=== PATIENT | female | born 1965 | race Caucasian/White ===

== ENCOUNTER 2022-11-22 23:21 | Inpatient (IN) | payer OTHER, SELFPAY ==
[2022-11-23 01:13] VITALS: BMI 32.6
[2022-11-23 01:22] VITALS: BP 124/67; PULSE 56; RESP 17; TEMP 36.6; O2SAT 96
[2022-11-23] MEDS: traZODone HCL 50 MG TABLET PO ×2 (01:29→21:47)
[2022-11-23] MEDS: hydrOXYzine HCL 25 MG TABLET PO (01:29)
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
[2022-11-23 06:00] VITALS: BP 121/83; PULSE 60; RESP 18; TEMP 36.5; O2SAT 97
[2022-11-23] MEDS: Thiamine HCL 100 MG TABLET PO (11:02)
[2022-11-23] MEDS: Sennosides 8.6 MG TABLET 17.2 MG PO (11:02)
[2022-11-23] MEDS: Folic Acid 1 MG TABLET PO (11:02)
[2022-11-23] MEDS: Multivitamin TABLET 1 TAB PO (11:02)
[2022-11-23] MEDS: FLUoxetine HCl 20 MG CAPSULE PO (11:02)
[2022-11-23] MEDS: Aspirin 81 MG TAB.CHEW PO (11:02)
[2022-11-23] MEDS: carvediloL 6.25 MG TABLET PO (11:55)
--- NOTE | 2022-11-23 16:11 | HO.PM.IMCN ---
History of Present Illness Data of Consult Service Date: 11/23/22 Primary Care Provider: Unknown Physician HPI Reason for consult: Admission H&P Pt is a 57-year-old female with a PMH significant for?CAD and MDD who is admitted to psychiatry unit for increasing depression with intentional overdose of 6 metformin pills and 6 atorvastatin. Patient has also been drinking heavily and using cocaine. Medical consult for admission H&P. ?Patient initially presented to [facility] on 11/16/2022 and while hospitalized had sudden onset of chest/throat burning. Patient admitted that she had had ongoing symptoms of exertional dyspnea and throat tightness after heavy meals. Was given an echocardiogram done that found low normal ejection fraction of 50-55% with hypokinesis of the basal to mid anterior lateral and basal to mid inferior lateral santiago. Serial troponins were negative. Patient's other workup showed that she likely had some degree of CAD and was started on a statin, aspirin, and metoprolol. Patient was also initially found to have a prolonged QT likely in the setting of intentional overdose. Currently patient has no acute medical complaints. Patient states she is feeling ?good?. Denies any continue will throat/chest burning or irritation. Denies chest pain/pressure, palpitations. Denies shortness of breath. No fever, chills, nausea, vomiting, diarrhea, abdominal pain. Review of Systems Review of Systems: She has no acute medical complaints at this time. [facility] Medical History PTSD (post-traumatic stress disorder) Cocaine use disorder, mild, abuse Alcohol use disorder, severe, dependence Recurrent major depression Social History Household Members: Spouse Housing: House Do you presently have visiting nurse or other home services: No Patient Tobacco Use Status: Current someday Tobacco user Tobacco use type: Cigarette e-Cigarette/Vaping Use: Never Used Patient Interested in Nicotine Replacement: No Patient Given Instructions on How to Stop Smoking: Yes Date Education Initiated: 11/23/22 Second Hand Smoke Exposure: No Use of substances other than those prescribed or required for medical reasons: Yes Substance Use Type: Crack/Cocaine Substance Use Frequency: Recent Binge Last Used Substance: Weeks (ago) Last Used Substance Other:: one week ago Currently Displaying Signs/Symptoms of Drug Intoxication Withdrawal: No Have you been hit, kicked, punched, or otherwise hurt by someone within the past year? If so, by whom?: No Do you feel safe in your current relationship?: Yes Is there a partner from a previous relationship who is making you feel unsafe now?: No Are you made to feel afraid or neglected: Yes Advance Directives: No Advance Directives Information Provided: Yes Do you have thoughts of harming others: None Do you have a plan to hurt others: No Plan Recently lost weight without trying: No Nutrition Risks: No Nutritional Risk Patient : No : No Poor oral hygiene: No Meds Allergies Allergy/AdvReac Type Severity Reaction Status Date / Time Penicillins Allergy Unknown Verified 11/23/22 00:24 Active Medications: Current Medications Acetaminophen (Acetaminophen 325 Mg Tablet) 650 mg PO Q6H PRN PRN Reason: Headache/Pain Mild Scale (1-3) Al Hydroxide/Mg Hydroxide (Magnesium Hydrox/Alum Hydrox 30 Ml Oral.Susp) 30 ml PO Q6H PRN PRN Reason: Heartburn/Nausea Aspirin (Aspirin 81 Mg Tab.Chew) 81 mg PO DAILY [facility] Last Admin: 11/23/22 11:02 Dose: 81 mg Carvedilol (Carvedilol 6.25 Mg Tablet) 6.25 mg PO BID [facility]; Protocol Last Admin: 11/23/22 11:55 Dose: 6.25 mg Fluoxetine HCl (Fluoxetine Hcl 20 Mg Capsule) 20 mg PO DAILY [facility] Last Admin: 11/23/22 11:02 Dose: 20 mg Folic Acid (Folic Acid 1 Mg Tablet) 1 mg PO DAILY [facility] Last Admin: 11/23/22 11:02 Dose: 1 mg Hydroxyzine HCl (Hydroxyzine Hcl 25 Mg Tablet) 25 mg PO Q6H PRN PRN Reason: Anxiety Last Admin: 11/23/22 01:29 Dose: 25 mg Magnesium Hydroxide (Milk Of Magnesia 30 Ml Oral.Susp) 30 ml PO DAILY PRN PRN Reason: Constipation Multivitamins/Vitamin C (Multivitamin Tablet) 1 tab PO DAILY [facility] Last Admin: 11/23/22 11:02 Dose: 1 tab Nicotine Polacrilex (Nicotine Polacrilex 2 Mg Gum) 2 mg BUCCAL Q2H PRN PRN Reason: Nicotine Cravings Nitroglycerin (Nitroglycerin 0.4 Mg Tab.Subl) 0.4 mg SUBLINGUAL Q5MX3 PRN PRN Reason: Chest Pain Polyethylene Glycol (Polyethylene Glycol 3350 17 Gm Powd.Pack) 17 gm PO DAILY PRN PRN Reason: constipation Senna (Sennosides 8.6 Mg Tablet) 17.2 mg PO DAILY [facility] Last Admin: 11/23/22 11:02 Dose: 17.2 mg Thiamine HCl (Thiamine Hcl 100 Mg Tablet) 100 mg PO DAILY [facility] Last Admin: 11/23/22 11:02 Dose: 100 mg Trazodone HCl (Trazodone Hcl 50 Mg Tablet) 50 mg PO BEDTIME MRX1 PRN PRN Reason: Insomnia Last Admin: 11/23/22 01:29 Dose: 50 mg Home Medications Medication Instructions Recorded Confirmed Last Taken Type aspirin 81 mg tablet,delayed 81 mg PO DAILY 11/23/22 11/23/22 Unknown History release carvedilol 6.25 mg tablet 6.25 mg PO BID 11/23/22 11/23/22 Unknown History Physical Exam Vital Signs and Narrative: Vital Signs: Last Vital Signs Temp 97.7 F 11/23/22 06:00 Pulse 60 11/23/22 06:00 Resp 18 11/23/22 06:00 BP 121/83 11/23/22 06:00 Pulse Ox 97 11/23/22 06:00 O2 Del Method Room Air 11/23/22 06:00 BMI result Body Mass Index 32.6 General: AOx3, no acute distress Resp: CTA bilaterally CVS: S1, S2, RRR GI: +BS, NT, no distention Skin: No rash Neuro: Cranial nerves II-XII grossly intact bilaterally. Motor grossly intact bilaterally Extremities: No edema Psych: Appropriate affect Assessment and Plan (1) Medical clearance for psychiatric admission: Status: Acute Plan Pt is a 57-year-old female with a PMH significant for?CAD and MDD who is admitted to [facility] psychiatry unit for increasing depression with intentional overdose of 6 metformin pills and 6 atorvastatin. Patient has also been drinking heavily and using cocaine. Medical consult for admission H&P Mood disorder Plan as per Psychiatry CAD Patient recently diagnosed with CAD after echocardiogram found inferolateral and anterior lateral wall motion abnormalities Continue aspirin, carvedilol Thank you for allowing us to participate in the care of this patient. Signing off at this time. Please let us know if there are any acute complaints or questions. Time Spent With Patient Time: Total time managing care of this patient today ____ minutes.
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
[2022-11-23 20:16] VITALS: BP 112/73; PULSE 60; TEMP 35.8
[2022-11-23 21:40] VITALS: BP 119/69; PULSE 54
[2022-11-23] MEDS: Atorvastatin Calcium 80 MG TABLET PO (21:47)
[2022-11-24 08:00] VITALS: BP 134/95; PULSE 76; RESP 20; TEMP 36.3; O2SAT 97
[2022-11-24] MEDS: FLUoxetine HCl 20 MG CAPSULE PO (09:08)
[2022-11-24] MEDS: Thiamine HCL 100 MG TABLET PO (09:08)
[2022-11-24] MEDS: Sennosides 8.6 MG TABLET 17.2 MG PO (09:08)
[2022-11-24] MEDS: Multivitamin TABLET 1 TAB PO (09:08)
[2022-11-24] MEDS: Aspirin 81 MG TAB.CHEW PO (09:08)
[2022-11-24] MEDS: carvediloL 6.25 MG TABLET PO (09:09)
[2022-11-24] MEDS: Folic Acid 1 MG TABLET PO (09:09)
[2022-11-24 09:14] LABS: Estimated Average Glucose 105 mg/dL; Hemoglobin A1c % 5.3 % (<6.0)
[2022-11-24 09:30] LABS: Alanine Aminotransferase 239 U/L (0-31); Albumin Level 3.6 g/dL (3.5-5.0); Alkaline Phosphatase 101 U/L (39-117); Anion Gap 13 (12-20); Aspartate Amino Transferase 202 U/L (5-31); Bilirubin Total 0.6 mg/dL (0.0-1.0); Blood Urea Nitrogen 16 mg/dL (9-16); Calcium 9.5 mg/dL (8.4-10.2); Carbon Dioxide 20 mmol/L (22-29); Chloride 111 mmol/L (96-108); Cholesterol 190 mg/dL (<200); Creatinine Clr Calc Pharmacy 91.1; Estimated Glomerular Filt Rate > 60; Glucose Fasting 100 mg/dL (60-99); HDL Cholesterol 31 mg/dL (>40); LDL Cholesterol Calculated 129 mg/dL (<100); Potassium 4.1 mmol/L (3.3-5.1); Sodium 140 mmol/L (135-145); Total Protein 7.9 g/dL (6.5-8.0); Triglycerides 152 mg/dL (<150)
[2022-11-24 09:45] LABS: Free T4 (Free Thyroxine) 0.99 ng/dL (0.71-1.85); Thyroid Stimulating Hormone 1.44 uIU/mL (0.32-4.0)
[2022-11-24 10:05] LABS: Folate 13.2 ng/mL (> or = 4.0); Vitamin B12 980 pg/mL (200-900)
[2022-11-24 10:56] LABS: Glucose, Whole Blood 109 mg/dL (60-115)
--- NOTE | 2022-11-24 12:55 | P.PNPSI_ITS ---
Subjective Subjective Date of Service: 11/24/22 Reason For Visit: F33.2 F10.20 Subjective Notes: Conditional Voluntary Healthcare Proxy: No Guardianship: No Medical Problems Affecting Mental Status: No Interim History: Review of QT prolongation with Ana today. Given marielena she can place on her phone to check medications for QT issues, Credible Meds. Pt is utilizing [employer]. and mother visited. s/w this leader writer this evening. I love her very much, the drinking is a serious problem. Any help I can offer her, I will. I will drive her to any program you tell me to . I fear I will lose her if she continues to drink . Medication Compliance: Yes Side effects from medications: No Attending Groups: Yes Review of Systems Acute medical concerns: No Mental Status Exam Mental Status Exam Patient Appearance: Appropriate Patient Orientation: Person, Place, Time and Situation Level of Consciousness: Alert Patient Behavior: Appropriate, Talkative, Cooperative and Good Eye Contact Mood Description: Depressed and Anxious Affect Description: Flat Patient Cognition Impaired: No Ability to Follow Directions: Good Speech Pattern: Spontaneous Speech Memory Description: Intact Hallucinations: None Delusions: Not Present Perceptual Disturbances: Depersonalization and Derealization Thought Process: Rumination Thought Content: positive for Perseveration Depressive Symptoms: Increased Anxiety, Difficulty Sleeping, Feelings of Worthlessness, Unhappiness and Low Self Esteem Judgement: Good Diagnostics Vital Signs (24Hr): Vital Signs - 24 hr 11/23/22 20:16 11/23/22 21:40 11/24/22 08:00 Temperature 96.4 F L 97.3 F Pulse Rate 60 54 76 Respiratory Rate 20 Blood Pressure 112/73 119/69 134/95 H Pulse Oximetry 97 Oxygen Delivery Method Room Air BMI result Body Mass Index 32.6 Labs 11/24/22 08:20 Labs: Laboratory Results - last 48 hr 11/24/22 11/24/22 08:20 10:53 Sodium 140 Potassium 4.1 Chloride 111 H Carbon Dioxide 20 L Anion Gap 13 BUN 16 Creatinine 0.75 Estim Creat Clear Calc 91.1 Estimated GFR > 60 POC Glucose 109 Fasting Glucose 100 H Estimat Average Glucose 105 Hemoglobin A1c % 5.3 Calcium 9.5 Total Bilirubin 0.6 AST 202 H ALT 239 H Alkaline Phosphatase 101 Total Protein 7.9 Albumin 3.6 Triglycerides 152 H Cholesterol 190 LDL Cholesterol, Calc 129 H HDL Cholesterol 31 L Vitamin B12 980 H Folate 13.2 TSH 1.44 Free T4 0.99 Medications Medications Current Medications Acetaminophen (Acetaminophen 325 Mg Tablet) 650 mg PO Q6H PRN PRN Reason: Headache/Pain Mild Scale (1-3) Al Hydroxide/Mg Hydroxide (Magnesium Hydrox/Alum Hydrox 30 Ml Oral.Susp) 30 ml PO Q6H PRN PRN Reason: Heartburn/Nausea Aspirin (Aspirin 81 Mg Tab.Chew) 81 mg PO DAILY [facility] Last Admin: 11/24/22 09:08 Dose: 81 mg Atorvastatin Calcium (Atorvastatin Calcium 80 Mg Tablet) 80 mg PO BEDTIME [facility] Last Admin: 11/23/22 21:47 Dose: 80 mg Carvedilol (Carvedilol 6.25 Mg Tablet) 6.25 mg PO BID [facility]; Protocol Last Admin: 11/24/22 09:09 Dose: 6.25 mg Fluoxetine HCl (Fluoxetine Hcl 20 Mg Capsule) 20 mg PO DAILY [facility] Last Admin: 11/24/22 09:08 Dose: 20 mg Folic Acid (Folic Acid 1 Mg Tablet) 1 mg PO DAILY [facility] Last Admin: 11/24/22 09:09 Dose: 1 mg Hydroxyzine HCl (Hydroxyzine Hcl 25 Mg Tablet) 25 mg PO Q6H PRN PRN Reason: Anxiety Last Admin: 11/23/22 01:29 Dose: 25 mg Magnesium Hydroxide (Milk Of Magnesia 30 Ml Oral.Susp) 30 ml PO DAILY PRN PRN Reason: Constipation Multivitamins/Vitamin C (Multivitamin Tablet) 1 tab PO DAILY [facility] Last Admin: 11/24/22 09:08 Dose: 1 tab Nicotine Polacrilex (Nicotine Polacrilex 2 Mg Gum) 2 mg BUCCAL Q2H PRN PRN Reason: Nicotine Cravings Nitroglycerin (Nitroglycerin 0.4 Mg Tab.Subl) 0.4 mg SUBLINGUAL Q5MX3 PRN PRN Reason: Chest Pain Polyethylene Glycol (Polyethylene Glycol 3350 17 Gm Powd.Pack) 17 gm PO DAILY PRN PRN Reason: constipation Senna (Sennosides 8.6 Mg Tablet) 17.2 mg PO DAILY [facility] Last Admin: 11/24/22 09:08 Dose: 17.2 mg Thiamine HCl (Thiamine Hcl 100 Mg Tablet) 100 mg PO DAILY [facility] Last Admin: 11/24/22 09:08 Dose: 100 mg Trazodone HCl (Trazodone Hcl 50 Mg Tablet) 50 mg PO BEDTIME MRX1 PRN PRN Reason: Insomnia Last Admin: 11/23/22 21:47 Dose: 50 mg Allergies Allergies Allergy/AdvReac Type Severity Reaction Status Date / Time Penicillins Allergy Unknown Verified 11/23/22 00:24 Assessment & Plan Assessment & Plan (1) Medical clearance for psychiatric admission: Status: Acute Code(s): Z00.8 - Encounter for other general examination (2) Recurrent major depression: Status: Acute Code(s): F33.9 - Major depressive disorder, recurrent, unspecified (3) Alcohol use disorder, severe, dependence: Status: Acute Code(s): F10.20 - Alcohol dependence, uncomplicated Assessment and Plan: 11/24/22: Continue current regime and plan of care (4) Cocaine use disorder, mild, abuse: Status: Acute Code(s): F14.10 - Cocaine abuse, uncomplicated (5) PTSD (post-traumatic stress disorder): Status: Acute Code(s): F43.10 - Post-traumatic stress disorder, unspecified Plan Pt is a 57-year-old female with a PMH significant for?CAD and MDD who is admitted to [facility] psychiatry unit for increasing depression with intentional overdose of 6 metformin pills and 6 atorvastatin. Patient has also been drinking heavily and using cocaine. Medical consult for admission H&P Mood disorder Plan as per Psychiatry CAD Patient recently diagnosed with CAD after echocardiogram found inferolateral and anterior lateral wall motion abnormalities Continue aspirin, carvedilol Thank you for allowing us to participate in the care of this patient. Signing off at this time. Please let us know if there are any acute complaints or questions. Reason for continued inpatient stay Substantial Risk for: harm to self, rapid decompensation and med/psych decompensation Time Spent With Patient Time: Total time managing care of this patient today ____ minutes.
[2022-11-24] MEDS: Acetaminophen 325 MG TABLET 650 MG PO (14:48)
[2022-11-24 18:00] VITALS: BP 134/75; PULSE 56; TEMP 36.4; O2SAT 97
[2022-11-24] MEDS: Atorvastatin Calcium 80 MG TABLET PO (21:28)
[2022-11-24] MEDS: traZODone HCL 50 MG TABLET PO (21:32)
[2022-11-25 08:31] VITALS: BP 129/83; PULSE 64; RESP 18; TEMP 36.3; O2SAT 97
[2022-11-25 08:40] LABS: Glucose, Whole Blood 94 mg/dL (60-115)
[2022-11-25] MEDS: FLUoxetine HCl 20 MG CAPSULE PO (08:41)
[2022-11-25] MEDS: Multivitamin TABLET 1 TAB PO (08:41)
[2022-11-25] MEDS: Folic Acid 1 MG TABLET PO (08:41)
[2022-11-25] MEDS: carvediloL 6.25 MG TABLET PO (08:41)
[2022-11-25] MEDS: Aspirin 81 MG TAB.CHEW PO (08:41)
[2022-11-25] MEDS: Thiamine HCL 100 MG TABLET PO (08:41)
--- NOTE | 2022-11-25 12:26 | HO.PSYCHPN ---
Subjective Subjective Date of Service: 11/25/22 Reason For Visit: F33.2 F10.20 Subjective Notes: Conditional Voluntary Medical Problems Affecting Mental Status: No (not diabetic just took who is meds in overdose ) Interim History: 57 yo MHF who was drinking prior to admission and maritn on various handfuls of medication- has been getting poc due to one of them being metformin but is not diabetic herself- feeling much better off alcohol and with fluoxetine- more hopeful and future oriented Medication Compliance: Yes Side effects from medications: No Attending Groups: Yes Review of Systems Acute medical concerns: No Medical Review of Systems: unchanged Mental Status Exam Mental Status Exam Narrative: casually groomed, Patient Appearance: Appropriate Patient Orientation: Person, Place, Time and Situation Level of Consciousness: Awake and Appropriate Patient Behavior: Appropriate Mood Description: Calm Affect Description: Appropriate Patient Cognition Impaired: No Ability to Follow Directions: Good Speech Pattern: Clear Hallucinations: None Thought Process: Intact and Goal Oriented Judgement: Good Diagnostics Vital Signs (24Hr): Vital Signs - 24 hr 11/24/22 18:00 11/25/22 08:31 Temperature 97.5 F 97.4 F Pulse Rate 56 64 Respiratory Rate 18 Blood Pressure 134/75 129/83 Pulse Oximetry 97 97 Oxygen Delivery Method Room Air BMI result Body Mass Index 32.6 Labs 11/24/22 08:20 Labs: Laboratory Results - last 48 hr 11/24/22 11/24/22 11/25/22 08:20 10:53 08:36 Sodium 140 Potassium 4.1 Chloride 111 H Carbon Dioxide 20 L Anion Gap 13 BUN 16 Creatinine 0.75 Estim Creat Clear Calc 91.1 Estimated GFR > 60 POC Glucose 109 94 Fasting Glucose 100 H Estimat Average Glucose 105 Hemoglobin A1c % 5.3 Calcium 9.5 Total Bilirubin 0.6 AST 202 H ALT 239 H Alkaline Phosphatase 101 Total Protein 7.9 Albumin 3.6 Triglycerides 152 H Cholesterol 190 LDL Cholesterol, Calc 129 H HDL Cholesterol 31 L Vitamin B12 980 H Folate 13.2 TSH 1.44 Free T4 0.99 Medications Medications Current Medications Acetaminophen (Acetaminophen 325 Mg Tablet) 650 mg PO Q6H PRN PRN Reason: Headache/Pain Mild Scale (1-3) Last Admin: 11/24/22 14:48 Dose: 650 mg Al Hydroxide/Mg Hydroxide (Magnesium Hydrox/Alum Hydrox 30 Ml Oral.Susp) 30 ml PO Q6H PRN PRN Reason: Heartburn/Nausea Aspirin (Aspirin 81 Mg Tab.Chew) 81 mg PO DAILY [facility] Last Admin: 11/25/22 08:41 Dose: 81 mg Atorvastatin Calcium (Atorvastatin Calcium 80 Mg Tablet) 80 mg PO BEDTIME [facility] Last Admin: 11/24/22 21:28 Dose: 80 mg Carvedilol (Carvedilol 6.25 Mg Tablet) 6.25 mg PO BID [facility]; Protocol Last Admin: 11/25/22 08:41 Dose: 6.25 mg Fluoxetine HCl (Fluoxetine Hcl 20 Mg Capsule) 20 mg PO DAILY [facility] Last Admin: 11/25/22 08:41 Dose: 20 mg Folic Acid (Folic Acid 1 Mg Tablet) 1 mg PO DAILY [facility] Last Admin: 11/25/22 08:41 Dose: 1 mg Hydroxyzine HCl (Hydroxyzine Hcl 25 Mg Tablet) 25 mg PO Q6H PRN PRN Reason: Anxiety Last Admin: 11/23/22 01:29 Dose: 25 mg Magnesium Hydroxide (Milk Of Magnesia 30 Ml Oral.Susp) 30 ml PO DAILY PRN PRN Reason: Constipation Multivitamins/Vitamin C (Multivitamin Tablet) 1 tab PO DAILY [facility] Last Admin: 11/25/22 08:41 Dose: 1 tab Nicotine Polacrilex (Nicotine Polacrilex 2 Mg Gum) 2 mg BUCCAL Q2H PRN PRN Reason: Nicotine Cravings Nitroglycerin (Nitroglycerin 0.4 Mg Tab.Subl) 0.4 mg SUBLINGUAL Q5MX3 PRN PRN Reason: Chest Pain Polyethylene Glycol (Polyethylene Glycol 3350 17 Gm Powd.Pack) 17 gm PO DAILY PRN PRN Reason: constipation Senna (Sennosides 8.6 Mg Tablet) 17.2 mg PO DAILY [facility] Last Admin: 11/25/22 08:42 Dose: Not Given Thiamine HCl (Thiamine Hcl 100 Mg Tablet) 100 mg PO DAILY [facility] Last Admin: 11/25/22 08:41 Dose: 100 mg Trazodone HCl (Trazodone Hcl 50 Mg Tablet) 50 mg PO BEDTIME MRX1 PRN PRN Reason: Insomnia Last Admin: 11/24/22 21:32 Dose: 50 mg Allergies Allergies Allergy/AdvReac Type Severity Reaction Status Date / Time Penicillins Allergy Unknown Verified 11/23/22 00:24 Assessment & Plan Assessment & Plan (1) Medical clearance for psychiatric admission: Status: Acute Code(s): Z00.8 - Encounter for other general examination (2) Recurrent major depression: Status: Acute Code(s): F33.9 - Major depressive disorder, recurrent, unspecified Assessment and Plan: doing well on fluoxetine (3) Alcohol use disorder, severe, dependence: Status: Acute Code(s): F10.20 - Alcohol dependence, uncomplicated Assessment and Plan: 11/24/22: Continue current regime and plan of care (4) Cocaine use disorder, mild, abuse: Status: Acute Code(s): F14.10 - Cocaine abuse, uncomplicated (5) PTSD (post-traumatic stress disorder): Status: Acute Code(s): F43.10 - Post-traumatic stress disorder, unspecified Plan Pt is a 57-year-old female with a PMH significant for?CAD and MDD who is admitted to [facility] unit for increasing depression with intentional overdose of 6 metformin pills and 6 atorvastatin. Patient has also been drinking heavily and using cocaine. Medical consult for admission H&P Mood disorder Plan as per Psychiatry CAD Patient recently diagnosed with CAD after echocardiogram found inferolateral and anterior lateral wall motion abnormalities Continue aspirin, carvedilol Thank you for allowing us to participate in the care of this patient. Signing off at this time. Please let us know if there are any acute complaints or questions. Patient educated on: medication risk/benefits and therapeutic strategies Informed Consent: understands Reason for continued inpatient stay Substantial Risk for: rapid decompensation Time Spent With Patient Time: Total time managing care of this patient today ____ minutes.
[2022-11-25 20:40] VITALS: BP 133/90; PULSE 55; TEMP 36.1
[2022-11-25] MEDS: Atorvastatin Calcium 80 MG TABLET PO (20:46)
[2022-11-25] MEDS: traZODone HCL 50 MG TABLET PO (20:47)
[2022-11-26] MEDS: hydrOXYzine HCL 25 MG TABLET PO (06:48)
[2022-11-26 08:15] VITALS: BP 121/91; PULSE 64; RESP 16; TEMP 36.4; O2SAT 98
[2022-11-26] MEDS: Multivitamin TABLET 1 TAB PO (08:30)
[2022-11-26] MEDS: Aspirin 81 MG TAB.CHEW PO (08:30)
[2022-11-26] MEDS: FLUoxetine HCl 20 MG CAPSULE PO (08:30)
[2022-11-26] MEDS: carvediloL 6.25 MG TABLET PO (08:30)
[2022-11-26] MEDS: Folic Acid 1 MG TABLET PO (08:30)
[2022-11-26] MEDS: Thiamine HCL 100 MG TABLET PO (08:30)
--- NOTE | 2022-11-26 11:33 | HO.PSYCHPN ---
Subjective Subjective Date of Service: 11/26/22 Reason For Visit: F33.2 F10.20 Subjective Notes: Conditional Voluntary Interim History: 57 yo with rash on her face- thinks it is due to laundry detergent - or soaphere0= on unit- asked pt to have bring own soap and to take benadryl 25mg q 4 today- otherwise she is quite content with antidepressant will have to dc it if rash continues- Medication Compliance: Yes Side effects from medications: Yes (? rash due to fluoxetine started on admission vs laundry soap) Attending Groups: Yes Review of Systems Acute medical concerns: Yes facial rash no mucus membrane swelling- no hives no sob Mental Status Exam Mental Status Exam Narrative: patient with redness over most of face- better a bit since taking benadryl pt reports Patient Appearance: Appropriate Patient Orientation: Person, Place, Time and Situation Level of Consciousness: Awake and Alert Patient Behavior: Appropriate and Cooperative Mood Description: Calm Affect Description: Calm Patient Cognition Impaired: No Ability to Follow Directions: Good Speech Pattern: Clear Hallucinations: None Delusions: Not Present Thought Process: Intact Thought Content: positive for Goal Oriented Judgement: Good Diagnostics Vital Signs (24Hr): Vital Signs - 24 hr 11/25/22 20:40 11/26/22 08:15 Temperature 96.9 F 97.5 F Pulse Rate 55 64 Respiratory Rate 16 Blood Pressure 133/90 H 121/91 H Pulse Oximetry 98 Oxygen Delivery Method Room Air BMI result Body Mass Index 32.6 Labs 11/24/22 08:20 Labs: Laboratory Results - last 48 hr 11/25/22 08:36 POC Glucose 94 Medications Medications Current Medications Acetaminophen (Acetaminophen 325 Mg Tablet) 650 mg PO Q6H PRN PRN Reason: Headache/Pain Mild Scale (1-3) Last Admin: 11/24/22 14:48 Dose: 650 mg Al Hydroxide/Mg Hydroxide (Magnesium Hydrox/Alum Hydrox 30 Ml Oral.Susp) 30 ml PO Q6H PRN PRN Reason: Heartburn/Nausea Aspirin (Aspirin 81 Mg Tab.Chew) 81 mg PO DAILY [facility] Last Admin: 11/26/22 08:30 Dose: 81 mg Atorvastatin Calcium (Atorvastatin Calcium 80 Mg Tablet) 80 mg PO BEDTIME [facility] Last Admin: 11/25/22 20:46 Dose: 80 mg Carvedilol (Carvedilol 6.25 Mg Tablet) 6.25 mg PO BID [facility]; Protocol Last Admin: 11/26/22 08:30 Dose: 6.25 mg Fluoxetine HCl (Fluoxetine Hcl 20 Mg Capsule) 20 mg PO DAILY [facility] Last Admin: 11/26/22 08:30 Dose: 20 mg Folic Acid (Folic Acid 1 Mg Tablet) 1 mg PO DAILY [facility] Last Admin: 11/26/22 08:30 Dose: 1 mg Hydroxyzine HCl (Hydroxyzine Hcl 25 Mg Tablet) 25 mg PO Q6H PRN PRN Reason: Anxiety Last Admin: 11/26/22 06:48 Dose: 25 mg Magnesium Hydroxide (Milk Of Magnesia 30 Ml Oral.Susp) 30 ml PO DAILY PRN PRN Reason: Constipation Multivitamins/Vitamin C (Multivitamin Tablet) 1 tab PO DAILY [facility] Last Admin: 11/26/22 08:30 Dose: 1 tab Nicotine Polacrilex (Nicotine Polacrilex 2 Mg Gum) 2 mg BUCCAL Q2H PRN PRN Reason: Nicotine Cravings Nitroglycerin (Nitroglycerin 0.4 Mg Tab.Subl) 0.4 mg SUBLINGUAL Q5MX3 PRN PRN Reason: Chest Pain Polyethylene Glycol (Polyethylene Glycol 3350 17 Gm Powd.Pack) 17 gm PO DAILY PRN PRN Reason: constipation Senna (Sennosides 8.6 Mg Tablet) 17.2 mg PO DAILY [facility] Last Admin: 11/26/22 08:30 Dose: Not Given Thiamine HCl (Thiamine Hcl 100 Mg Tablet) 100 mg PO DAILY [facility] Last Admin: 11/26/22 08:30 Dose: 100 mg Trazodone HCl (Trazodone Hcl 50 Mg Tablet) 50 mg PO BEDTIME MRX1 PRN PRN Reason: Insomnia Last Admin: 11/25/22 20:47 Dose: 50 mg Allergies Allergies Allergy/AdvReac Type Severity Reaction Status Date / Time Penicillins Allergy Unknown Verified 11/23/22 00:24 Assessment & Plan Assessment & Plan (1) Medical clearance for psychiatric admission: Status: Acute Code(s): Z00.8 - Encounter for other general examination (2) Recurrent major depression: Status: Acute Code(s): F33.9 - Major depressive disorder, recurrent, unspecified Assessment and Plan: doing well on fluoxetine (3) Alcohol use disorder, severe, dependence: Status: Acute Code(s): F10.20 - Alcohol dependence, uncomplicated Assessment and Plan: 11/24/22: Continue current regime and plan of care (4) Cocaine use disorder, mild, abuse: Status: Acute Code(s): F14.10 - Cocaine abuse, uncomplicated (5) PTSD (post-traumatic stress disorder): Status: Acute Code(s): F43.10 - Post-traumatic stress disorder, unspecified (6) Facial rash: Status: Acute Code(s): R21 - Rash and other nonspecific skin eruption Assessment and Plan: on benadryl 25mg q 4 Plan Pt is a 57-year-old female with a PMH significant for?CAD and MDD who is admitted to [facility] unit for increasing depression with intentional overdose of 6 metformin pills and 6 atorvastatin. Patient has also been drinking heavily and using cocaine. Medical consult for admission H&P Mood disorder Plan as per Psychiatry CAD Patient recently diagnosed with CAD after echocardiogram found inferolateral and anterior lateral wall motion abnormalities Continue aspirin, carvedilol Thank you for allowing us to participate in the care of this patient. Signing off at this time. Please let us know if there are any acute complaints or questions. Patient educated on: medication risk/benefits and substance abuse Informed Consent: understands Reason for continued inpatient stay Substantial Risk for: rapid decompensation Time Spent With Patient Time: Total time managing care of this patient today ____ minutes.
[2022-11-26] MEDS: Acetaminophen 325 MG TABLET 650 MG PO (19:23)
[2022-11-26 19:48] VITALS: BP 127/61; PULSE 60; RESP 18; TEMP 36.2; O2SAT 95
[2022-11-26] MEDS: diphenhydrAMINE HCL 25 MG CAPSULE PO (21:18)
[2022-11-26] MEDS: Atorvastatin Calcium 80 MG TABLET PO (21:18)
[2022-11-27 06:00] VITALS: BP 140/86; PULSE 58; RESP 18; TEMP 36.4; O2SAT 96
[2022-11-27] MEDS: FLUoxetine HCl 20 MG CAPSULE PO (08:39)
[2022-11-27] MEDS: Aspirin 81 MG TAB.CHEW PO (08:39)
[2022-11-27] MEDS: Folic Acid 1 MG TABLET PO (08:39)
[2022-11-27] MEDS: Multivitamin TABLET 1 TAB PO (08:39)
[2022-11-27] MEDS: carvediloL 6.25 MG TABLET PO (08:39)
[2022-11-27] MEDS: Thiamine HCL 100 MG TABLET PO (08:39)
[2022-11-27] MEDS: Sennosides 8.6 MG TABLET 17.2 MG PO (08:39)
--- NOTE | 2022-11-27 13:32 | P.PNPSI_ITS ---
Subjective Subjective Date of Service: 11/27/22 Reason For Visit: F33.2 F10.20 Subjective Notes: Conditional Voluntary Interim History: Pt reports feeling less depressed. She denies SI/HI. She reports motivation to continue tx for alcohol use. She would like to discharge home and may consider dual dx PHP down the road as currently she is main support for her mother. No psychosis or delusions. Review of Systems Review of Systems She has no acute medical complaints at this time. Yes all other systems are reviewed and are negative Reports behavioral changes Psychiatric: Reports anxiety, Reports behavioral changes, Reports depression, Reports difficulty concentrating, Reports hopelessness, Reports anhedonia and Reports suicidal ideation Mental Status Exam Mental Status Exam Patient Appearance: Appropriate Patient Orientation: Person, Place, Time and Situation Level of Consciousness: Awake and Alert Patient Behavior: Appropriate and Cooperative Mood Description: Calm Affect Description: Calm Patient Cognition Impaired: No Ability to Follow Directions: Good Speech Pattern: Clear Memory Description: Intact Diagnostics Vital Signs (24Hr): Vital Signs - 24 hr 11/26/22 19:48 11/27/22 06:00 Temperature 97.1 F 97.5 F Pulse Rate 60 58 Respiratory Rate 18 18 Blood Pressure 127/61 140/86 H Pulse Oximetry 95 96 Oxygen Delivery Method Room Air Room Air BMI result Body Mass Index 32.6 Labs 11/24/22 08:20 Medications Medications Current Medications Acetaminophen (Acetaminophen 325 Mg Tablet) 650 mg PO Q6H PRN PRN Reason: Headache/Pain Mild Scale (1-3) Last Admin: 11/26/22 19:23 Dose: 650 mg Al Hydroxide/Mg Hydroxide (Magnesium Hydrox/Alum Hydrox 30 Ml Oral.Susp) 30 ml PO Q6H PRN PRN Reason: Heartburn/Nausea Aspirin (Aspirin 81 Mg Tab.Chew) 81 mg PO DAILY [facility] Last Admin: 11/27/22 08:39 Dose: 81 mg Atorvastatin Calcium (Atorvastatin Calcium 80 Mg Tablet) 80 mg PO BEDTIME [facility] Last Admin: 11/26/22 21:18 Dose: 80 mg Carvedilol (Carvedilol 6.25 Mg Tablet) 6.25 mg PO BID [facility]; Protocol Last Admin: 11/27/22 08:39 Dose: 6.25 mg Diphenhydramine HCl (Diphenhydramine Hcl 25 Mg Capsule) 25 mg PO Q4H PRN PRN Reason: Rash Last Admin: 11/26/22 21:18 Dose: 25 mg Fluoxetine HCl (Fluoxetine Hcl 20 Mg Capsule) 20 mg PO DAILY [facility] Last Admin: 11/27/22 08:39 Dose: 20 mg Folic Acid (Folic Acid 1 Mg Tablet) 1 mg PO DAILY [facility] Last Admin: 11/27/22 08:39 Dose: 1 mg Hydroxyzine HCl (Hydroxyzine Hcl 25 Mg Tablet) 25 mg PO Q6H PRN PRN Reason: Anxiety Last Admin: 11/26/22 06:48 Dose: 25 mg Magnesium Hydroxide (Milk Of Magnesia 30 Ml Oral.Susp) 30 ml PO DAILY PRN PRN Reason: Constipation Multivitamins/Vitamin C (Multivitamin Tablet) 1 tab PO DAILY [facility] Last Admin: 11/27/22 08:39 Dose: 1 tab Nicotine Polacrilex (Nicotine Polacrilex 2 Mg Gum) 2 mg BUCCAL Q2H PRN PRN Reason: Nicotine Cravings Nitroglycerin (Nitroglycerin 0.4 Mg Tab.Subl) 0.4 mg SUBLINGUAL Q5MX3 PRN PRN Reason: Chest Pain Polyethylene Glycol (Polyethylene Glycol 3350 17 Gm Powd.Pack) 17 gm PO DAILY PRN PRN Reason: constipation Senna (Sennosides 8.6 Mg Tablet) 17.2 mg PO DAILY [facility] Last Admin: 11/27/22 08:39 Dose: 17.2 mg Thiamine HCl (Thiamine Hcl 100 Mg Tablet) 100 mg PO DAILY [facility] Last Admin: 11/27/22 08:39 Dose: 100 mg Trazodone HCl (Trazodone Hcl 50 Mg Tablet) 50 mg PO BEDTIME MRX1 PRN PRN Reason: Insomnia Last Admin: 11/25/22 20:47 Dose: 50 mg Allergies Allergies Allergy/AdvReac Type Severity Reaction Status Date / Time Penicillins Allergy Unknown Verified 11/23/22 00:24 Assessment & Plan Assessment & Plan (1) Recurrent major depression: Status: Acute Code(s): F33.9 - Major depressive disorder, recurrent, unspecified Assessment and Plan: doing well on fluoxetine (2) Alcohol use disorder, severe, dependence: Status: Acute Code(s): F10.20 - Alcohol dependence, uncomplicated Assessment and Plan: 11/24/22: Continue current regime and plan of care (3) Cocaine use disorder, mild, abuse: Status: Acute Code(s): F14.10 - Cocaine abuse, uncomplicated (4) PTSD (post-traumatic stress disorder): Status: Acute Code(s): F43.10 - Post-traumatic stress disorder, unspecified Plan Pt is a 57-year-old female with a PMH significant for?CAD and MDD who is admitted to [facility] psychiat[facility] unit for increasing depression with intentional overdose of 6 metformin pills and 6 atorvastatin. Patient has also been drinking heavily and using cocaine. Medical consult for admission H&P Mood disorder Plan as per Psychiatry CAD Patient recently diagnosed with CAD after echocardiogram found inferolateral and anterior lateral wall motion abnormalities Continue aspirin, carvedilol Thank you for allowing us to participate in the care of this patient. Signing off at this time. Please let us know if there are any acute complaints or questions. Reason for continued inpatient stay Substantial Risk for: inability to function Time Spent With Patient Time: Total time managing care of this patient today ____ minutes.
[2022-11-27 18:00] VITALS: BP 158/95; PULSE 61; TEMP 2.4; TEMP 36.4; O2SAT 98
[2022-11-27] MEDS: Acetaminophen 325 MG TABLET 650 MG PO (19:12)
[2022-11-27] MEDS: traZODone HCL 50 MG TABLET PO (21:34)
[2022-11-27] MEDS: Atorvastatin Calcium 80 MG TABLET PO (21:34)
[2022-11-27 21:40] VITALS: BP 193/93; PULSE 58
[2022-11-27] MEDS: amLODIPine Besylate 5 MG TABLET PO (21:58)
[2022-11-27 23:25] VITALS: BP 150/79; RESP 63
--- NOTE | 2022-11-27 23:41 | PC.NURSE ---
Patient's HS Coreg 5 mg po was held due to heart rate of 58. BP was 193/[address] Milligan was notified. Amlodipine Besylate 5 mg was give at 2158 and BP and heart rate were rechecked and had gone down to 150/79 with a pulse of 63. Dr. Milligan notified of the change in bp after Amlodipine.
[2022-11-28 06:00] VITALS: BP 151/92; PULSE 59; RESP 18
[2022-11-28] MEDS: Acetaminophen 325 MG TABLET 650 MG PO (06:48)
[2022-11-28] MEDS: carvediloL 6.25 MG TABLET PO ×2 (08:05→21:25)
[2022-11-28] MEDS: Folic Acid 1 MG TABLET PO (08:05)
[2022-11-28] MEDS: Aspirin 81 MG TAB.CHEW PO (08:05)
[2022-11-28] MEDS: Multivitamin TABLET 1 TAB PO (08:05)
[2022-11-28] MEDS: Thiamine HCL 100 MG TABLET PO (08:05)
[2022-11-28] MEDS: Sennosides 8.6 MG TABLET 17.2 MG PO (08:05)
[2022-11-28] MEDS: FLUoxetine HCl 20 MG CAPSULE PO (08:05)
[2022-11-28 16:49] LABS: Alanine Aminotransferase 186 U/L (0-31); Albumin Level 3.6 g/dL (3.5-5.0); Alkaline Phosphatase 106 U/L (39-117); Aspartate Amino Transferase 133 U/L (5-31); Bilirubin Direct 0.1 mg/dL (0.0-0.5); Bilirubin Total 0.4 mg/dL (0.0-1.0); Total Protein 8.3 g/dL (6.5-8.0)
[2022-11-28 18:00] VITALS: BP 159/84; PULSE 54
[2022-11-28] MEDS: diphenhydrAMINE HCL 25 MG CAPSULE PO (18:45)
[2022-11-28] MEDS: amLODIPine Besylate 5 MG TABLET PO (18:45)
--- NOTE | 2022-11-28 18:48 | PC.NURSE ---
Patient's BP 185/98, Amber Shrestha, on calkl provider notified. Amlodipine 5 mg po x 1 ordered and given. Patient also c/o rash on face, and said she thinks it is due to not washing her hand af
--- NOTE | 2022-11-28 18:49 | PC.NURSE ---
bP was elevated at 185/98 with a pulse of 53. Amber Shrestha notified and Amlodipine 10 mg po x 1 dose now was ordered and given. Patient was also given Benadryl 25 mg po for c/o facial rash. Patient sdaid she used a disinfecting wipe to clean the telephone but did not wash her hands; she thinks that is the cause of the rash. No SOB noted or reported.
--- NOTE | 2022-11-28 21:01 | HO.PSYCHPN ---
Subjective Subjective Date of Service: 11/28/22 Reason For Visit: F33.2 F10.20 Subjective Notes: Conditional Voluntary Interim History: Pt continues to report feeling less depressed. She denies SI/HI. She reports motivation to continue tx for alcohol use. She would like to discharge home and may consider dual dx PHP down the road as currently she is main support for her mother. No psychosis or delusions. We discussed medications to decrease alcohol use. She is interedted in naltrexon but LFT 3 times normal range. Will recheck today and discuss. Review of Systems Review of Systems She has no acute medical complaints at this time. Yes all other systems are reviewed and are negative Reports behavioral changes Psychiatric: Reports anxiety, Reports behavioral changes, Reports depression, Reports difficulty concentrating, Reports hopelessness, Reports anhedonia and Reports suicidal ideation Mental Status Exam Mental Status Exam Patient Appearance: Appropriate Patient Orientation: Person, Place, Time and Situation Level of Consciousness: Awake and Alert Patient Behavior: Appropriate and Cooperative Mood Description: Calm Affect Description: Calm Patient Cognition Impaired: No Ability to Follow Directions: Good Speech Pattern: Clear Memory Description: Intact Diagnostics Vital Signs (24Hr): Vital Signs - 24 hr 11/27/22 21:40 11/27/22 23:25 11/28/22 06:00 Pulse Rate 58 59 Respiratory Rate 63 H 18 Blood Pressure 193/93 H 150/79 H 151/92 H 11/28/22 18:00 Pulse Rate 54 Respiratory Rate Blood Pressure 159/84 H BMI result Body Mass Index 32.6 Labs 11/24/22 08:20 Labs: Laboratory Results - last 48 hr 11/28/22 16:09 Total Bilirubin 0.4 Direct Bilirubin 0.1 AST 133 H ALT 186 H Alkaline Phosphatase 106 Total Protein 8.3 H Albumin 3.6 Medications Medications Current Medications Acetaminophen (Acetaminophen 325 Mg Tablet) 650 mg PO Q6H PRN PRN Reason: Headache/Pain Mild Scale (1-3) Last Admin: 11/28/22 06:48 Dose: 650 mg Al Hydroxide/Mg Hydroxide (Magnesium Hydrox/Alum Hydrox 30 Ml Oral.Susp) 30 ml PO Q6H PRN PRN Reason: Heartburn/Nausea Amlodipine Besylate (Amlodipine Besylate 5 Mg Tablet) 5 mg PO BEDTIME [facility]; Protocol Last Admin: 11/28/22 18:45 Dose: 5 mg Aspirin (Aspirin 81 Mg Tab.Chew) 81 mg PO DAILY [facility] Last Admin: 11/28/22 08:05 Dose: 81 mg Atorvastatin Calcium (Atorvastatin Calcium 80 Mg Tablet) 80 mg PO BEDTIME [facility] Last Admin: 11/27/22 21:34 Dose: 80 mg Carvedilol (Carvedilol 6.25 Mg Tablet) 6.25 mg PO BID [facility]; Protocol Last Admin: 11/28/22 08:05 Dose: 6.25 mg Diphenhydramine HCl (Diphenhydramine Hcl 25 Mg Capsule) 25 mg PO Q4H PRN PRN Reason: Rash Last Admin: 11/28/22 18:45 Dose: 25 mg Fluoxetine HCl (Fluoxetine Hcl 20 Mg Capsule) 20 mg PO DAILY [facility] Last Admin: 11/28/22 08:05 Dose: 20 mg Folic Acid (Folic Acid 1 Mg Tablet) 1 mg PO DAILY [facility] Last Admin: 11/28/22 08:05 Dose: 1 mg Hydrocortisone (Hydrocortisone 1 % Ointment 28.35 Gm Tube) 1 appl TOPICAL BID PR[facility]; Protocol PRN Reason: itching Hydroxyzine HCl (Hydroxyzine Hcl 25 Mg Tablet) 25 mg PO Q6H PRN PRN Reason: Anxiety Last Admin: 11/26/22 06:48 Dose: 25 mg Magnesium Hydroxide (Milk Of Magnesia 30 Ml Oral.Susp) 30 ml PO DAILY PRN PRN Reason: Constipation Multivitamins/Vitamin C (Multivitamin Tablet) 1 tab PO DAILY [facility] Last Admin: 11/28/22 08:05 Dose: 1 tab Nicotine Polacrilex (Nicotine Polacrilex 2 Mg Gum) 2 mg BUCCAL Q2H PRN PRN Reason: Nicotine Cravings Nitroglycerin (Nitroglycerin 0.4 Mg Tab.Subl) 0.4 mg SUBLINGUAL Q5MX3 PRN PRN Reason: Chest Pain Polyethylene Glycol (Polyethylene Glycol 3350 17 Gm Powd.Pack) 17 gm PO DAILY PRN PRN Reason: constipation Senna (Sennosides 8.6 Mg Tablet) 17.2 mg PO DAILY [facility] Last Admin: 11/28/22 08:05 Dose: 17.2 mg Thiamine HCl (Thiamine Hcl 100 Mg Tablet) 100 mg PO DAILY [facility] Last Admin: 11/28/22 08:05 Dose: 100 mg Trazodone HCl (Trazodone Hcl 50 Mg Tablet) 50 mg PO BEDTIME MRX1 PRN PRN Reason: Insomnia Last Admin: 11/27/22 21:34 Dose: 50 mg Allergies Allergies Allergy/AdvReac Type Severity Reaction Status Date / Time Penicillins Allergy Unknown Verified 11/23/22 00:24 Assessment & Plan Assessment & Plan (1) Recurrent major depression: Status: Acute Code(s): F33.9 - Major depressive disorder, recurrent, unspecified Assessment and Plan: doing well on fluoxetine (2) Alcohol use disorder, severe, dependence: Status: Acute Code(s): F10.20 - Alcohol dependence, uncomplicated Assessment and Plan: 11/24/22: Continue current regime and plan of care (3) Cocaine use disorder, mild, abuse: Status: Acute Code(s): F14.10 - Cocaine abuse, uncomplicated (4) PTSD (post-traumatic stress disorder): Status: Acute Code(s): F43.10 - Post-traumatic stress disorder, unspecified Plan Pt is a 57-year-old female with a PMH significant for?CAD and MDD who is admitted to [facility] psychiatry unit for increasing depression with intentional overdose of 6 metformin pills and 6 atorvastatin. Patient has also been drinking heavily and using cocaine. Medical consult for admission H&P Mood disorder Plan as per Psychiatry CAD Patient recently diagnosed with CAD after echocardiogram found inferolateral and anterior lateral wall motion abnormalities Continue aspirin, carvedilol PSYCH 11/28 recheck LFT, if appropriate start naltrexon 25mg po daily. Reason for continued inpatient stay Substantial Risk for: stable for discharge Time Spent With Patient Time: Total time managing care of this patient today ____ minutes.
[2022-11-28] MEDS: Atorvastatin Calcium 80 MG TABLET PO (21:25)
[2022-11-29] MEDS: Hydrocortisone 1 % Ointment 28.35 GM TUBE 1 APPL TOPICAL (06:36)
[2022-11-29] MEDS: Thiamine HCL 100 MG TABLET PO (08:57)
[2022-11-29] MEDS: Multivitamin TABLET 1 TAB PO (08:57)
[2022-11-29] MEDS: carvediloL 6.25 MG TABLET PO ×2 (08:57→21:06)
[2022-11-29] MEDS: Folic Acid 1 MG TABLET PO (08:57)
[2022-11-29] MEDS: Aspirin 81 MG TAB.CHEW PO (08:57)
[2022-11-29] MEDS: FLUoxetine HCl 20 MG CAPSULE PO (08:57)
[2022-11-29 09:04] VITALS: BP 103/62; PULSE 57; RESP 18; TEMP 36.5; O2SAT 95
--- NOTE | 2022-11-29 12:02 | P.PNPSI_ITS ---
Subjective Subjective Date of Service: 11/29/22 Reason For Visit: F33.2 F10.20 Subjective Notes: Conditional Voluntary Interim History: Pt reports feeling better overall. She reports conversation with peers which was uplifting and positive but emotional. No SI/HI. Pt reports some difficulty falling asleep. No VH/AH. Pt visible on the unit, social with peers. attends assigned groups. Medication Compliance: Yes Side effects from medications: No Review of Systems Review of Systems She has no acute medical complaints at this time. Yes all other systems are reviewed and are negative Reports behavioral changes Psychiatric: Reports anxiety, Reports behavioral changes, Reports depression, Reports difficulty concentrating, Reports hopelessness, Reports anhedonia and Reports suicidal ideation Mental Status Exam Mental Status Exam Patient Appearance: Appropriate Patient Orientation: Person, Place, Time and Situation Level of Consciousness: Awake and Alert Patient Behavior: Appropriate and Cooperative Mood Description: Calm Affect Description: Calm Patient Cognition Impaired: No Ability to Follow Directions: Good Speech Pattern: Clear Memory Description: Intact Diagnostics Vital Signs (24Hr): Vital Signs - 24 hr 11/28/22 18:00 11/29/22 09:04 Temperature 97.7 F Pulse Rate 54 57 Respiratory Rate 18 Blood Pressure 159/84 H 103/62 Pulse Oximetry 95 Oxygen Delivery Method Room Air BMI result Body Mass Index 32.6 Labs 11/24/22 08:20 Labs: Laboratory Results - last 48 hr 11/28/22 16:09 Total Bilirubin 0.4 Direct Bilirubin 0.1 AST 133 H ALT 186 H Alkaline Phosphatase 106 Total Protein 8.3 H Albumin 3.6 Medications Medications Current Medications Acetaminophen (Acetaminophen 325 Mg Tablet) 650 mg PO Q6H PRN PRN Reason: Headache/Pain Mild Scale (1-3) Last Admin: 11/28/22 06:48 Dose: 650 mg Al Hydroxide/Mg Hydroxide (Magnesium Hydrox/Alum Hydrox 30 Ml Oral.Susp) 30 ml PO Q6H PRN PRN Reason: Heartburn/Nausea Amlodipine Besylate (Amlodipine Besylate 5 Mg Tablet) 5 mg PO BEDTIME GAGE; Protocol Last Admin: 11/28/22 18:45 Dose: 5 mg Aspirin (Aspirin 81 Mg Tab.Chew) 81 mg PO DAILY GAGE Last Admin: 11/29/22 08:57 Dose: 81 mg Atorvastatin Calcium (Atorvastatin Calcium 80 Mg Tablet) 80 mg PO BEDTIME GAGE Last Admin: 11/28/22 21:25 Dose: 80 mg Carvedilol (Carvedilol 6.25 Mg Tablet) 6.25 mg PO BID [facility]; Protocol Last Admin: 11/29/22 08:57 Dose: 6.25 mg Diphenhydramine HCl (Diphenhydramine Hcl 25 Mg Capsule) 25 mg PO Q4H PRN PRN Reason: Rash Last Admin: 11/28/22 18:45 Dose: 25 mg Fluoxetine HCl (Fluoxetine Hcl 20 Mg Capsule) 20 mg PO DAILY [facility] Last Admin: 11/29/22 08:57 Dose: 20 mg Folic Acid (Folic Acid 1 Mg Tablet) 1 mg PO DAILY [facility] Last Admin: 11/29/22 08:57 Dose: 1 mg Hydrocortisone (Hydrocortisone 1 % Ointment 28.35 Gm Tube) 1 appl TOPICAL BID PRN; Protocol PRN Reason: itching Last Admin: 11/29/22 06:36 Dose: 1 appl Hydroxyzine HCl (Hydroxyzine Hcl 25 Mg Tablet) 25 mg PO Q6H PRN PRN Reason: Anxiety Last Admin: 11/26/22 06:48 Dose: 25 mg Magnesium Hydroxide (Milk Of Magnesia 30 Ml Oral.Susp) 30 ml PO DAILY PRN PRN Reason: Constipation Multivitamins/Vitamin C (Multivitamin Tablet) 1 tab PO DAILY [facility] Last Admin: 11/29/22 08:57 Dose: 1 tab Nicotine Polacrilex (Nicotine Polacrilex 2 Mg Gum) 2 mg BUCCAL Q2H PRN PRN Reason: Nicotine Cravings Nitroglycerin (Nitroglycerin 0.4 Mg Tab.Subl) 0.4 mg SUBLINGUAL Q5MX3 PRN PRN Reason: Chest Pain Polyethylene Glycol (Polyethylene Glycol 3350 17 Gm Powd.Pack) 17 gm PO DAILY PRN PRN Reason: constipation Senna (Sennosides 8.6 Mg Tablet) 17.2 mg PO DAILY [facility] Last Admin: 11/29/22 08:58 Dose: Not Given Thiamine HCl (Thiamine Hcl 100 Mg Tablet) 100 mg PO DAILY [facility] Last Admin: 11/29/22 08:57 Dose: 100 mg Trazodone HCl (Trazodone Hcl 50 Mg Tablet) 50 mg PO BEDTIME MRX1 PRN PRN Reason: Insomnia Last Admin: 11/27/22 21:34 Dose: 50 mg Allergies Allergies Allergy/AdvReac Type Severity Reaction Status Date / Time Penicillins Allergy Unknown Verified 11/23/22 00:24 Assessment & Plan Assessment & Plan (1) Recurrent major depression: Status: Acute Code(s): F33.9 - Major depressive disorder, recurrent, unspecified Assessment and Plan: doing well on fluoxetine (2) Alcohol use disorder, severe, dependence: Status: Acute Code(s): F10.20 - Alcohol dependence, uncomplicated Assessment and Plan: 11/24/22: Continue current regime and plan of care (3) Cocaine use disorder, mild, abuse: Status: Acute Code(s): F14.10 - Cocaine abuse, uncomplicated (4) PTSD (post-traumatic stress disorder): Status: Acute Code(s): F43.10 - Post-traumatic stress disorder, unspecified Plan Pt is a 57-year-old female with a PMH significant for?CAD and MDD who is admitted to [facility] psychiatry unit for increasing depression with intentional overdose of 6 metformin pills and 6 atorvastatin. Patient has also been drinking heavily and using cocaine. Medical consult for admission H&P Mood disorder Plan as per Psychiatry CAD Patient recently diagnosed with CAD after echocardiogram found inferolateral and anterior lateral wall motion abnormalities Continue aspirin, carvedilol PSYCH 11/28 recheck LFT, if appropriate start naltrexon 25mg po daily. 11/29 LFT trending down but still 3 times normal. will not start naltrexon but pt in agreement campral 666mg po TID Reason for continued inpatient stay Substantial Risk for: stable for discharge Time Spent With Patient Time: Total time managing care of this patient today ____ minutes.
[2022-11-29] MEDS: Acamprosate Calcium 333 MG TABLET.DR 666 MG PO (15:04)
[2022-11-29 16:14] VITALS: BP 119/69; PULSE 54; RESP 16; TEMP 36.2; O2SAT 97
[2022-11-29] MEDS: Atorvastatin Calcium 80 MG TABLET PO (21:06)
[2022-11-29] MEDS: amLODIPine Besylate 5 MG TABLET PO (21:06)
[2022-11-29] MEDS: traZODone HCL 50 MG TABLET PO (21:23)
[2022-11-30] MEDS: Multivitamin TABLET 1 TAB PO (08:22)
[2022-11-30] MEDS: Folic Acid 1 MG TABLET PO (08:22)
[2022-11-30] MEDS: Acamprosate Calcium 333 MG TABLET.DR 666 MG PO (08:22)
[2022-11-30] MEDS: FLUoxetine HCl 20 MG CAPSULE PO (08:22)
[2022-11-30] MEDS: Thiamine HCL 100 MG TABLET PO (08:22)
[2022-11-30] MEDS: Aspirin 81 MG TAB.CHEW PO (08:23)
[2022-11-30] MEDS: carvediloL 6.25 MG TABLET PO (08:23)
[2022-11-30 08:26] VITALS: BMI 33.0
[2022-11-30 08:27] VITALS: BP 136/83; PULSE 58; RESP 18; TEMP 36; O2SAT 96
[2022-11-30 08:32] LABS: Alanine Aminotransferase 165 U/L (0-31); Albumin Level 3.6 g/dL (3.5-5.0); Alkaline Phosphatase 115 U/L (39-117); Anion Gap 8 (12-20); Aspartate Amino Transferase 113 U/L (5-31); Bilirubin Total 0.6 mg/dL (0.0-1.0); Blood Urea Nitrogen 11 mg/dL (9-16); Calcium 9.4 mg/dL (8.4-10.2); Carbon Dioxide 26 mmol/L (22-29); Chloride 108 mmol/L (96-108); Creatinine Clr Calc Pharmacy 95.5; Estimated Glomerular Filt Rate > 60; Glucose Random 95 mg/dL (60-115); Potassium 4.2 mmol/L (3.3-5.1); Sodium 138 mmol/L (135-145)
--- NOTE | 2022-11-30 10:25 | PM.PSYDC ---
DS: Providers Provider Date of Service: 12/01/22 Date of admission: 11/22/22 23:21 Date of discharge: 12/01/22 Primary care physician: Unknown Physician Consults: 11/23/22 01:13 Consult to Hospitalist Routine Comment: Consulting Provider: Hospitalist Reason For Exam: OSH admission Discharging clinician: Amber Shrestha DS: Diagnosis Discharge Diagnosis (1) Recurrent major depression: Status: Deleted (2) Alcohol use disorder, severe, dependence: Status: Acute (3) Cocaine use disorder, mild, abuse: Status: Acute (4) PTSD (post-traumatic stress disorder): Status: Acute DS: Medications Discharge Medications Home Medications: Previous Rx's Medication Instructions Recorded amlodipine 5 mg tablet 5 mg PO BEDTIME #30 tabs 11/30/22 aspirin 81 mg chewable tablet 81 mg PO DAILY #30 tabs 11/30/22 atorvastatin 80 mg tablet 80 mg PO BEDTIME #30 tabs 11/30/22 carvedilol 6.25 mg tablet 6.25 mg PO BID #60 tabs 11/30/22 fluoxetine 20 mg capsule 20 mg PO DAILY #30 caps 11/30/22 folic acid 1 mg tablet 1 mg PO DAILY #30 tabs 11/30/22 multivitamin (Daily-Hbavin tablet) 1 tab PO DAILY #30 tabs 11/30/22 nitroglycerin 0.4 mg sublingual 0.4 mg sublingual Q5MX3 PRN Chest 11/30/22 tablet (Nitrostat) Pain #30 tabs sennosides 8.6 mg tablet (Senna 17.2 mg (2 x 8.6 mg) PO DAILY #30 11/30/22 Lax) tabs thiamine mononitrate (vit B1) 100 100 mg PO DAILY #30 tabs 11/30/22 mg tablet trazodone 50 mg tablet 50 mg PO BEDTIME PRN Insomnia #30 11/30/22 tabs Mental Status Exam Mental Status Exam Patient Appearance: Appropriate Patient Orientation: Person, Place, Time and Situation Level of Consciousness: Alert Patient Behavior: Talkative and Good Eye Contact Mood Description: Depressed Affect Description: Anxious and Apprehensive Patient Cognition Impaired: No Ability to Follow Directions: Fair Speech Pattern: Spontaneous Speech Memory Description: Intact Hallucinations: None Delusions: Not Present Thought Process: Intact Thought Content: positive for Suicidal Ideation Judgement: Poor Data Data Completed and Pending Completed studies during hospitalization [Text1]: 11/24/22 11/24/22 11/25/22 08:20 10:53 08:36 Sodium 140 Potassium 4.1 Chloride 111 H Carbon Dioxide 20 L Anion Gap 13 BUN 16 Creatinine 0.75 Estim Creat Clear Calc 91.1 Estimated GFR > 60 POC Glucose 109 94 Random Glucose Fasting Glucose 100 H Estimat Average Glucose 105 Hemoglobin A1c % 5.3 Calcium 9.5 Total Bilirubin 0.6 Direct Bilirubin AST 202 H ALT 239 H Alkaline Phosphatase 101 Total Protein 7.9 Albumin 3.6 Triglycerides 152 H Cholesterol 190 LDL Cholesterol, Calc 129 H HDL Cholesterol 31 L Vitamin B12 980 H Folate 13.2 TSH 1.44 Free T4 0.99 11/28/22 11/30/22 16:09 07:55 Sodium 138 Potassium 4.2 Chloride 108 Carbon Dioxide 26 Anion Gap 8 L BUN 11 Creatinine 0.72 Estim Creat Clear Calc 95.5 Estimated GFR > 60 POC Glucose Random Glucose 95 Fasting Glucose Estimat Average Glucose Hemoglobin A1c % Calcium 9.4 Total Bilirubin 0.4 0.6 Direct Bilirubin 0.1 AST 133 H 113 H ALT 186 H 165 H Alkaline Phosphatase 106 115 Total Protein 8.3 H 8.0 Albumin 3.6 3.6 Triglycerides Cholesterol LDL Cholesterol, Calc HDL Cholesterol Vitamin B12 Folate TSH Free T4 DS: Summary Hospital Course Hospital Course: Subjective Notes: Robertson Warning and Conditional Voluntary Healthcare Proxy: No Guardianship: No Medical Problems Affecting Mental Status: No Narrative: 57 yo female, history of depression, alcohol use along with intermittent cocaine, transferred from [facility] ICU s/p suicide attempt via overdose of Atorvastatin, 6 tabs, Metformin 6 tabs (husbands meds) (12 tabs total). Pt was reported to also be waving a knife. She reports prior to admission she was feeling depressed, was drinking and did cocaine. She thought about life not being worth living and thought about her relatives being in a peaceful happy place and decided her pain was not worth it. Her cousin came to the home and organized assistance for pt and family. Pt tearful as she related this story, stating that her son who in in the in [place] drove to her bedside to make sure she was going to survive. She now feels remorse for this act as she realizes that her son grandchildren and family are top priorities for her and she wants to be around to be with them. Reports a 37 year marriage with some difficulties, however believes these are transient and workable. 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 Pt is willing to engage in treatment and is glad she did survive and get the care she needed ([employer] [facility] [facility] found that she has CAD, cardiac murmur, infarct history and vasculitis-she required cardiac eval while in pt. Past Psychiatric History: IP: This admission is her first. OP: had a therapist 30+ years ago. No prescribing clinician SA: Denies- records report attempt in the 1979' Denies current SI Trials: Just initiated Prozac Medical Evaluation Reviewed: Gomezist Say Pending HOSPITAL COURSE On the unit, pt was admitted on a CV and placed on 15 minutes checks for safety. After discussing risks, benefits and alternative treatment options, pt agreed to start on prozac for depression. She was also started on campral to decrease alcohol cravings. We had discussed starting naltrexon but her LFT continued to present 3 times higher normal limits. On the unit, pt gradually presented as much less depressed, more visible and social with select peers. Pt attended assigned groups. She denied SI/HI. No signs of psychosis or delusions. No signs of aggression towards self or others. Pt sleeping and eating well. We discussed stepping down to dual PHP. However, pt reported she wanted to continue mostly outpatient psychiatric treatment. Status at Discharge Cognitive/behavioral status at discharge: Pt with brighter, non labile affect. No SI/HI. No s/s of psychosis or delusions. Future oriented. Sleeping and eating well. No s/s of aggression towards self or others. Functional status at discharge: independent ambulation Overall status at discharge: patient is back to baseline Time Spent with Patient Time attestation: Total time managing care of this patient today ____ minutes. Discharge Plan Discharge Anticipated Discharge Date/Time: 11/30/22 10:09 Patient Disposition: Home, Self-Care Discharge Diagnosis: MDD, recurrent, moderate Referrals: [facility] Intake w Jihan Nazario [Other] - 12/06/22 1:00 pm [facility] PsychEn Cherry [Other] - 01/03/23 11:00 am (Telehealth) [facility] Med Manag w Shraddha Cherry [Other] - 01/30/23 12:00 pm (Telehealth) [facility] [Other] - 1 Week (For day structure and to socialize.) AA Meetings [Other] - 1 Week (There is a paper in your discharge packet with locations and times for meetings. ) [facility] [Other] - 1 Week (I have given the disaster recovery consultant your phone number and they will be reaching out to you, please look out for their call. ) Cyndee Camp MD [Physician] - 12/11/22 12:40 pm (IN OFFICE ,RACHELLE CEDENO) Discharge Medications: New amlodipine 5 mg Tablet 5 mg PO BEDTIME Qty: 30 0RF Protocol: Hold for SBP< HOLD for SBP < : 90 trazodone 50 mg Tablet 50 mg PO BEDTIME PRN (Reason: Insomnia) Qty: 30 0RF nitroglycerin [Nitrostat] 0.4 mg Tablet, Sublingual 0.4 mg sublingual Q5MX3 PRN (Reason: Chest Pain) Qty: 30 0RF aspirin 81 mg Tablet,Chewable 81 mg PO DAILY Qty: 30 0RF fluoxetine 20 mg Capsule 20 mg PO DAILY Qty: 30 0RF multivitamin [Daily-Bhavin] Tablet 1 tab PO DAILY Qty: 30 0RF folic acid 1 mg Tablet 1 mg PO DAILY Qty: 30 0RF thiamine mononitrate (vit B1) 100 mg Tablet 100 mg PO DAILY Qty: 30 0RF Discontinued carvedilol 6.25 mg tablet 6.25 mg PO BID aspirin 81 mg tablet,delayed release (DR/EC) 81 mg PO DAILY No Action carvedilol 6.25 mg tablet 3.25 mg PO BID Protocol: Hold for SBP/HR < HOLD for SBP < : 90 HOLD for HR < : 60 Discharge Orders: Discharge Order (Routine); Ordered 11/30/22 Ordered By: Amber Shrestha Diet: Regular diet Activity on Discharge: As tolerated Stand Alone Forms: Patient Portal Discharge page, Community Support Care Plan Goals: 1. Maintain mood 2. No SI/HI 3. continue working on recovery Health Concerns: Follow up with PCP Plan of Treatment: 1. Take medications as prescribed 2. Go to nearest ED or call 911 in event of emergency Assessment: Pt with brighter, non labile affect. No SI/HI. No VH/AH. Sleeping through the night. No signs of aggression towards self or others. Future oriented. Discharge Date/Time: 11/30/22 11:49
== END 2022-11-30 11:49 | disposition home or self-care (01) | DRG 751 ==
PROVIDERS: Psychiatry & Neurology Psychiatry; Social Worker; Admitting Provider Psychiatry & Neurology Psychiatry; Visit Provider Clinical Nurse Specialist Psychiatric/Mental Health, Adult
DX: F33.9 Major depressive disorder, recurrent, unspecified (principal); F10.20 Alcohol dependence, uncomplicated; F17.210 Nicotine dependence, cigarettes, uncomplicated; F14.10 Cocaine abuse, uncomplicated; F43.10 Post-traumatic stress disorder, unspecified; I25.10 Atherosclerotic heart disease of native coronary artery without angina pectoris; Z71.6 Tobacco abuse counseling; Z79.82 Long term (current) use of aspirin; Z79.899 Other long term (current) drug therapy
CPT/HCPCS: 36415; 80053; 80061; 80076; 82607; 82746; 82947; 83036; 84439; 84443

== ENCOUNTER → 2022-11-22 23:21 | Outpatient (BNV) | payer OTHER, SELFPAY | PROVIDERS: Admitting Provider Psychiatry & Neurology Psychiatry; Visit Provider Student in an Organized Health Care Education/Training Program | DX: Z02.2 Encounter for examination for admission to residential institution (principal) | CPT/HCPCS: 99429 ==

== ENCOUNTER → 2022-11-22 23:21 | Outpatient (BNV) | payer OTHER, SELFPAY | PROVIDERS: Admitting Provider Psychiatry & Neurology Psychiatry; Visit Provider Clinical Nurse Specialist Psychiatric/Mental Health, Adult | DX: F33.2 Major depressive disorder, recurrent severe without psychotic features (principal); F14.10 Cocaine abuse, uncomplicated; F10.20 Alcohol dependence, uncomplicated; F43.11 Post-traumatic stress disorder, acute | CPT/HCPCS: 99231; 99232; 99233 ==

== ENCOUNTER 2022-12-14 19:41 | Inpatient (IN) | payer OTHER, SELFPAY ==
--- NOTE | 2022-12-14 20:15 | ED.ALCOHOL ---
HPI - Alcohol General Chief Complaint: Overdose Stated Complaint: ETOH, SI w/attempt Time Seen by Provider: 12/14/22 19:47 History of Present Illness HPI narrative: Patient is a 57-year-old female presented today after having a stressful event like. We elected to take lots of alcohol. Also took 2 tablets of carvedilol 3.125 mg and took 2 amlodipine 5 mg each. Patient baseline is on these medication to begin with. Takes amlodipine on a daily basis once a day. Next clobetasol Related Data Previous Rx's Medication Instructions Recorded acamprosate 333 mg tablet,delayed 666 mg (2 x 333 mg) PO TID #180 11/30/22 release tabs amlodipine 5 mg tablet 5 mg PO BEDTIME #30 tabs 11/30/22 aspirin 81 mg chewable tablet 81 mg PO DAILY #30 tabs 11/30/22 atorvastatin 80 mg tablet 80 mg PO BEDTIME #30 tabs 11/30/22 carvedilol 6.25 mg tablet 6.25 mg PO BID #60 tabs 11/30/22 fluoxetine 20 mg capsule 20 mg PO DAILY #30 caps 11/30/22 folic acid 1 mg tablet 1 mg PO DAILY #30 tabs 11/30/22 multivitamin (Daily-Bhavin tablet) 1 tab PO DAILY #30 tabs 11/30/22 nitroglycerin 0.4 mg sublingual 0.4 mg sublingual Q5MX3 PRN Chest 11/30/22 tablet (Nitrostat) Pain #30 tabs sennosides 8.6 mg tablet (Senna 17.2 mg (2 x 8.6 mg) PO DAILY #30 11/30/22 Lax) tabs thiamine mononitrate (vit B1) 100 100 mg PO DAILY #30 tabs 11/30/22 mg tablet trazodone 50 mg tablet 50 mg PO BEDTIME PRN Insomnia #30 11/30/22 tabs Allergies Allergy/AdvReac Type Severity Reaction Status Date / Time Penicillins Allergy Unknown Verified 11/23/22 00:24 [facility] Past Medical History Medical History PTSD (post-traumatic stress disorder) Cocaine use disorder, mild, abuse Alcohol use disorder, severe, dependence Recurrent major depression Social History Social History Household Members: Spouse Housing: House Do you presently have visiting nurse or other home services: No Patient Tobacco Use Status: Current someday Tobacco user Tobacco use type: Cigarette e-Cigarette/Vaping Use: Never Used Second Hand Smoke Exposure: No Substance Use Type: Crack/Cocaine Advance Directives: No Advance Directives Information Provided: No service: No Sexual orientation: Straight/Heterosexual Physical Exam ED Vital Signs: Vital Signs - 24 hr 12/14/22 20:48 Temperature 98.2 F Pulse Rate 52 Respiratory Rate 18 Blood Pressure 93/60 Pulse Oximetry 98 Oxygen Delivery Method Room Air BMI result Body Mass Index 31.6 Medical Decision Making Medical Decision Making [facility] Narrative: 57 years old patient took an overdose of her own medication including 2 tablets of carvedilol at 3.125 mg each. Two tablets of Norvasc 5 mg each. Denies taking any other medications. Patient given IV fluids. Monitored. Alcohol level still pending. In no distress. My interpretation of her EKG showed a sinus rhythm heart rate is 50 MO QRS QTC within normal limits there is no acute ST segment elevation patient well appearing no distress. Currently medically cleared awaiting crisis evaluation. Denies access to other medications. Aspirin Tylenol levels are negative. Awaiting crisis evaluation Differential Diagnosis Differential Diagnoses: The differential diagnosis associated with the presentation includes Polysubstance abuse overdose Admission/Observation Consideration of admission/observation: Escalation of care including admission/observation considered Consult Healthcare Provider Management of the patient was discussed with: Client Services Coordinator Crisis Lab Data [facility] Lab Attestation statement: I reviewed the patient's lab results. 12/14/22 20:35 12/14/22 20:35 Labs: Lab Results 12/14/22 12/14/22 Range/Units 20:35 20:44 WBC 5.5 (4.8-10.8) X10*3/uL RBC 4.30 (4.20-5.50) X10*6/uL Hgb 13.8 (12.0-16.0) g/dl Hct 39.0 (37.0-47.0) % MCV 90.7 (80.0-98.0) fL MCH 32.1 (27.0-33.0) pg MCHC 35.4 H (31.0-35.0) g/dl RDW 12.0 (11.0-16.0) % Plt Count 284 (160-400) X10*3/uL MPV 9.6 (9.4-12.3) fL Immature Gran % (Auto) 0.4 (0.0-0.4) % Neut % (Auto) 41.6 L (45-73) % Lymph % (Auto) 44.6 H (20-40) % [place] % (Auto) 10.6 (2-11) % Eos % (Auto) 2.4 (0-4) % Baso % (Auto) 0.4 (0-2) % Lymph # (Auto) 2.4 (1.2-4.9) X10*3/uL [place] # (Auto) 0.6 (0.1-1.2) X10*3/uL Eos # (Auto) 0.1 (0.0-0.4) X10*3/uL Baso # (Auto) 0.0 (0.0-0.2) X10*3/uL Abs Immat Gran (auto) 0.02 (0.00-0.03) X10*3/uL Absolute Neuts (auto) 2.3 (2.0-8.3) x10*3/uL Absolute Nucleated RBC 0.000 (0.0-0.012) X10*3/uL Nucleated RBC % (auto) 0.0 (0.0-0.2) /100WBC Sodium 143 (135-145) mmol/L Potassium 3.2 L D (3.3-5.1) mmol/L Chloride 111 H (96-108) mmol/L Carbon Dioxide 19 L (22-29) mmol/L Anion Gap 16 (12-20) BUN 16 (9-16) mg/dL Creatinine 0.69 (0.5-1.4) mg/dL Estim Creat Clear Calc TNP Estimated GFR > 60 Random Glucose 97 (60-115) mg/dL Calcium 8.8 D (8.4-10.2) mg/dL Total Bilirubin 0.3 (0.0-1.0) mg/dL Direct Bilirubin 0.1 (0.0-0.5) mg/dL AST 54 H (5-31) U/L ALT 66 H (0-31) U/L Alkaline Phosphatase 98 (39-117) U/L Total Protein 7.7 (6.5-8.0) g/dL Albumin 3.6 (3.5-5.0) g/dL Urine Color Yellow Urine Appearance Clear Urine pH 6.0 (5.0-9.0) Ur Specific [place] <= 1.005 (1.005-1.025) Urine Protein Negative (Neg-Trace) mg/dL Urine Glucose (UA) Negative (Negative) mg/dL Urine Ketones Negative (Negative) mg/dL Urine Blood Negative (Negative) Urine Nitrite Negative (Negative) Ur Leukocyte Esterase Negative (Negative) Urine RBC 0-2 (0-2) /HPF Urine WBC 0-5 (0-5) /HPF Ur Squamous Epith Cells 0-2 (0-2) /HPF Urine Bacteria None Seen (None Seen) Hyaline Casts 0-2 (0-2) /LPF Salicylates < 5.0 L (15-30) mg/dL Urine Opiates Screen Not Detected (Not Detect) Urine Fentanyl Screen Not Detected (Not Detect) Acetaminophen < 17 (<30) mcg/mL Ur Barbiturates Screen Not Detected (Not Detect) Ur Phencyclidine Scrn Not Detected (Not Detect) Ur Amphetamines Screen Not Detected (Not Detect) U Benzodiazepines Scrn Not Detected (Not Detect) Urine Cocaine Screen Not Detected (Not Detect) U Marijuana (THC) Screen Not Detected (Not Detect) Independent Interpretation I performed an independent interpretation of an: EKG Interpretation: Sinus heart rate is 50 MO QRS QTC within normal limits no acute ST segment elevation. Independent Historian Clinical information obtained from an independent historian. History obtained from or confirmed by: EMS External Record Review External record reviewed: Inpatient record Previous history of alcohol abuse Chronic Conditions Patient?s care impacted by: Hypertension History of hypertension Social Determinants Patient?s care significantly limited by Social Determinants of Health including: Alcoholism and drug addiction in family Medications Administered Discontinued Medications Generic Name Dose Route Start Last Admin Trade Name Freq PRN Reason Stop Dose Admin Sodium Chloride 1,000 mls @ 999 mls/hr 12/14/22 20:00 12/14/22 21:41 Ns IV 12/14/22 21:00 Infused .Q1H1M GAGE Infusion Sodium Chloride 1,000 mls @ 999 mls/hr 12/14/22 20:00 12/14/22 21:42 Ns IV 12/14/22 21:00 Infused .Q1H1M GAGE Infusion Ondansetron HCl 4 mg 12/14/22 20:00 12/14/22 20:31 Ondansetron Hcl 4 Mg/2 Ml Vial IVPUSH 12/14/22 20:01 4 mg ONCE ONE Administration Discharge Plan Discharge Clinical Impression: Drug overdose Patient Disposition: Still a Patient Prescriptions: No Action atorvastatin 80 mg Tablet 80 mg PO BEDTIME Qty: 30 0RF amlodipine 5 mg Tablet 5 mg PO BEDTIME Qty: 30 0RF Protocol: Hold for SBP< HOLD for SBP < : 90 carvedilol 6.25 mg Tablet 6.25 mg PO BID Qty: 60 0RF Protocol: Hold for SBP/HR < HOLD for SBP < : 90 HOLD for HR < : 60 trazodone 50 mg Tablet 50 mg PO BEDTIME PRN (Reason: Insomnia) Qty: 30 0RF nitroglycerin [Nitrostat] 0.4 mg Tablet, Sublingual 0.4 mg sublingual Q5MX3 PRN (Reason: Chest Pain) Qty: 30 0RF aspirin 81 mg Tablet,Chewable 81 mg PO DAILY Qty: 30 0RF fluoxetine 20 mg Capsule 20 mg PO DAILY Qty: 30 0RF multivitamin [Daily-Bhavin] Tablet 1 tab PO DAILY Qty: 30 0RF sennosides [Senna Lax] 8.6 mg Tablet 17.2 mg PO DAILY Qty: 30 0RF folic acid 1 mg Tablet 1 mg PO DAILY Qty: 30 0RF thiamine mononitrate (vit B1) 100 mg Tablet 100 mg PO DAILY Qty: 30 0RF acamprosate 333 mg tablet,delayed release (DR/EC) 666 mg PO TID Qty: 180 0RF
[2022-12-14 20:48] VITALS: BP 93/60; PULSE 52; RESP 18; TEMP 36.8; O2SAT 98; BMI 31.6
--- NOTE | 2022-12-14 21:35 | PC.NURSE ---
This RN assumed care upon patient's arrival. Patient presenting with slurred speech as well and vomited on herself. Security was called, patient changed into scrubs with this RN present. Patient walked with this RN to bathroom with steady gait and provided urine sample. Patient stating I don't want to go to the psych [facility] . Patient admitted to , still intoxicated at this time. Medications given per MAR, plan of care ongoing.
--- NOTE | 2022-12-14 21:35 | MHC.RECOVSUP ---
? Reason for consult:OD o? Current location:?ED11 o? Identified substance use concern:? -? Overdose -? Support ?? Intervention: o? Community resources provided o? Harm reduction discussion ? Plan:Admit M5 ? Additional information:RC met with this pt, she stated she's being admitted to psych and that she already has a RC. Pt stated this weekend would've been 30 days sober, but she just snapped RC suggested therapy and IOP services through [facility], RC provided pt with contact and recovery resources. Provider informed.
--- NOTE | 2022-12-14 21:41 | PC.NURSE ---
Pt able to ambulate to the bathroom- gait steady- pt denies any dizziness- IVF completed
[2022-12-14 21:53] VITALS: BP 98/59; PULSE 60; RESP 20; TEMP 36.4; O2SAT 96
[2022-12-14 23:52] VITALS: BP 95/50; PULSE 58; RESP 15; TEMP 36.5; O2SAT 98
[2022-12-14 23:59] VITALS: BP 95/56; PULSE 55; RESP 17; O2SAT 100
[2022-12-15] VITALS: BP 93/56; PULSE 50; RESP 18; O2SAT 99
--- NOTE | 2022-12-15 02:40 | PC.NURSE ---
Patient seen by Dyllan on CARE team, patient will be a bed search. Patient remains on 1:1 at this time, VSS.
--- NOTE | 2022-12-15 03:31 | PC.NURSE ---
Assumed care of pt. Pt lying on stretcher, no acute distress. Pt calm and cooperative with staff, good eye contact, intermittently tearful. Pt on O2 at this time, 100%. Titrating for lack of necessity.
--- NOTE | 2022-12-15 06:25 | MHC.EDTECH ---
Pt belongings in [place]
--- NOTE | 2022-12-15 06:27 | PC.NURSE ---
IV removed, med rec completed, report given to NINA Jorge
--- NOTE | 2022-12-15 06:34 | PC.NURSE ---
Patient just got transferred from main ED, independent ambulation, calm and quiet, med rec completed/pending provider's approval, disposition per care team is section 12 inpatient bed search, VSS, behavior non concerning, will continue to monitor
[2022-12-15 06:39] VITALS: BP 164/94; PULSE 58; RESP 16; TEMP 37; O2SAT 98
--- NOTE | 2022-12-15 07:17 | PC.NURSE ---
patient awake and awaiting am medications, patient making phone calls to familhy and asking about arranging visits for later in the day, appears in no distress
--- NOTE | 2022-12-15 09:25 | MHC.EDTECH ---
Pt requested that her mom take home some of her belongings before going inpatient. Pt's belongings were not documented properly. They were found in decon for an attempt of an overdose on her medication. The mother took home her clothes, debit card, license, insurance card, and jewelry. The only remaining item was her cellphone which the pt still wanted to go upstairs. It was placed in Locker # 4.
[2022-12-15 12:36] VITALS: BP 140/86; PULSE 55; RESP 16; TEMP 36.7; O2SAT 97
--- NOTE | 2022-12-15 14:38 | PC.ADMIT ---
Addendum entered by Hortensia Estrada RN 12/15/22 14:51: pt has a signed conditional voluntary. Original Note: pt arrived to unit via wheelchair at 12:10pm. Skin check performed and johnies changed. Pt was not oriented to floor at their request as pt was previously discharged. Pt reports she obtained 1 month of sobriety while previously admitted and upon discharge began attending AA. Pt reports she became irritated with spouse and decided to go out and have one scorpion bowl . She reports when she returned home she took double her heart medication because she did not remember taking it before leaving the house. She reports her overreacted and called an ambulance because he thought she was attempting to complete suicide. Pt currently reports she does not want to end her life. She reports wanting to discharge a soon a possible to return to . She reports she has a psych provider and therapist established durring previous admission and has upcoming appointments scheduled. Pt denies si/hi/avh and reports low anxiety and depression related to recent relapse. Admission left incomplete and passed to oncomig shift for completion.
--- NOTE | 2022-12-15 14:55 | PC.NURSE ---
pt declines NRT and Flu shot.
[2022-12-15 18:00] VITALS: BP 135/78; PULSE 84; TEMP 37.1
--- NOTE | 2022-12-15 19:16 | PC.NURSE ---
PT's called (release on file) concerned this is Ana's second attempt @ suicide and feels she was discharged too early last time. Family has great concern that she will succeed if not treated properly. Informed this information will be passed on to the providers.
--- NOTE | 2022-12-15 21:34 | PC.NURSE ---
PT's son Rashard (HCP) called for update. Wanted to inform team that he would like to take part in her care and is able to give collateral information. He feels Ana will act like she is okay when she is not. He and his father are quite concerned that she will hurt herself. Just can be reached @ [phone]
[2022-12-16 08:00] VITALS: BP 173/86; PULSE 54; TEMP 36.4; O2SAT 98
[2022-12-16 08:03] LABS: Alanine Aminotransferase 62 U/L (0-31); Albumin Level 4.1 g/dL (3.5-5.0); Alkaline Phosphatase 106 U/L (39-117); Anion Gap 16 (12-20); Aspartate Amino Transferase 48 U/L (5-31); Blood Urea Nitrogen 10 mg/dL (9-16); Calcium 10.1 mg/dL (8.4-10.2); Carbon Dioxide 22 mmol/L (22-29); Chloride 106 mmol/L (96-108); Creatinine Clr Calc Pharmacy 90.9; Estimated Glomerular Filt Rate > 60; Glucose Fasting 98 mg/dL (60-99); Potassium 3.8 mmol/L (3.3-5.1); Sodium 140 mmol/L (135-145); Total Protein 8.7 g/dL (6.5-8.0)
--- NOTE | 2022-12-16 10:52 | PC.NURSE ---
PT SIGNED A 3DAY NOTICE ON SundayDECEMBER 16 TO BE UP ON DECEMBER 22.
[2022-12-16 16:19] VITALS: BP 166/90; PULSE 47; TEMP 36.4; O2SAT 97
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
[2022-12-16 19:34] VITALS: BP 191/113; PULSE 65
[2022-12-16 22:30] VITALS: BP 157/90; PULSE 58; TEMP 36.6
[2022-12-17 08:30] VITALS: BP 152/100; PULSE 61; TEMP 36.2; O2SAT 97
--- NOTE | 2022-12-17 13:37 | HO.PSYCHPN ---
Subjective Subjective Date of Service: 12/17/22 Reason For Visit: depression Subjective Notes: Conditional Voluntary and 3 Day Healthcare Proxy: No Guardianship: No Medical Problems Affecting Mental Status: No Interim History: Pt seen, discussed with team. Plan of care reviewed. Visable in milieu. Reports sleep and appetite are adequate. Discussed today with pt her suicide attempts and what she wants for herself. Discussed possible family meeting with son via zoom and . Pt believes she needs more daytime structure-work. discussed [facility] referral Pt also discussed being in need of a PCP. Medication Compliance: Yes Side effects from medications: No Attending Groups: Yes Review of Systems Acute medical concerns: No Medical Review of Systems: unchanged Mental Status Exam Mental Status Exam Patient Appearance: Appropriate Patient Orientation: Person, Place, Time and Situation Level of Consciousness: Alert Patient Behavior: Talkative and Good Eye Contact Mood Description: Depressed Affect Description: Anxious and Apprehensive Patient Cognition Impaired: No Ability to Follow Directions: Fair Speech Pattern: Spontaneous Speech Memory Description: Intact Hallucinations: None Delusions: Not Present Thought Process: Intact Thought Content: positive for Suicidal Ideation Judgement: Poor Diagnostics Vital Signs (24Hr): Vital Signs - 24 hr 12/16/22 16:19 12/16/22 19:34 12/16/22 22:30 Temperature 97.6 F 97.9 F Pulse Rate 47 L 65 58 Blood Pressure 166/90 H 191/113 H 157/90 H Pulse Oximetry 97 Oxygen Delivery Method Room Air 12/17/22 08:30 Temperature 97.2 F Pulse Rate 61 Blood Pressure 152/100 H Pulse Oximetry 97 Oxygen Delivery Method Room Air BMI result Body Mass Index 31.6 Labs 12/14/22 20:35 12/16/22 07:22 Labs: Laboratory Results - last 48 hr 12/16/22 07:22 Sodium 140 Potassium 3.8 Chloride 106 Carbon Dioxide 22 Anion Gap 16 BUN 10 Creatinine 0.74 Estim Creat Clear Calc 90.9 Estimated GFR > 60 Fasting Glucose 98 Calcium 10.1 D Total Bilirubin 1.0 AST 48 H ALT 62 H Alkaline Phosphatase 106 Total Protein 8.7 H Albumin 4.1 Medications Medications Current Medications Acetaminophen (Acetaminophen 325 Mg Tablet) 650 mg PO Q6H PRN PRN Reason: Headache/Pain Mild Scale (1-3) Al Hydroxide/Mg Hydroxide (Magnesium Hydrox/Alum Hydrox 30 Ml Oral.Susp) 30 ml PO Q6H PRN PRN Reason: Heartburn/Nausea Amlodipine Besylate (Amlodipine Besylate 5 Mg Tablet) 5 mg PO BEDTIME [facility]; Protocol Last Admin: 12/16/22 19:48 Dose: 5 mg Aspirin (Aspirin 81 Mg Tab.Chew) 81 mg PO DAILY [facility] Last Admin: 12/17/22 08:56 Dose: 81 mg Carvedilol (Carvedilol 6.25 Mg Tablet) 3.125 mg PO BID [facility]; Protocol Last Admin: 12/17/22 08:57 Dose: 3.125 mg Fluoxetine HCl (Fluoxetine Hcl 20 Mg Capsule) 20 mg PO DAILY [facility] Last Admin: 12/17/22 08:57 Dose: 20 mg Folic Acid (Folic Acid 1 Mg Tablet) 1 mg PO DAILY [facility] Last Admin: 12/17/22 09:00 Dose: 1 mg Hydroxyzine HCl (Hydroxyzine Hcl 25 Mg Tablet) 25 mg PO Q6H PRN PRN Reason: Anxiety Lorazepam (Lorazepam 1 Mg Tablet) 1 mg PO Q2H PRN PRN Reason: CIWA 6-10 Last Admin: 12/15/22 20:44 Dose: 1 mg Lorazepam (Lorazepam 1 Mg Tablet) 2 mg PO Q2H PRN PRN Reason: CIWA 11 and above Magnesium Hydroxide (Milk Of Magnesia 30 Ml Oral.Susp) 30 ml PO DAILY PRN PRN Reason: Constipation Melatonin (Melatonin 3 Mg Tablet) 6 mg PO BEDTIME PRN PRN Reason: Insomnia Multivitamins/Vitamin C (Multivitamin Tablet) 1 tab PO DAILY [facility] Last Admin: 12/17/22 08:57 Dose: 1 tab Naltrexone HCl (Naltrexone Hcl 50 Mg Tablet) 25 mg PO DAILY [facility] Last Admin: 12/17/22 08:58 Dose: 25 mg Nicotine (Nicotine 21 Mg Patch.Td24) 21 mg TRANSDERMA DAILY PRN PRN Reason: smoking cessation Nicotine Polacrilex (Nicotine Polacrilex 2 Mg Gum) 4 mg BUCCAL Q2H PRN PRN Reason: Nicotine Cravings Nitroglycerin (Nitroglycerin 0.4 Mg Tab.Subl) 0.4 mg SUBLINGUAL Q5MX3 PRN PRN Reason: Chest Pain Thiamine HCl (Thiamine Hcl 100 Mg Tablet) 100 mg PO DAILY [facility] Last Admin: 12/17/22 08:57 Dose: 100 mg Trazodone HCl (Trazodone Hcl 50 Mg Tablet) 50 mg PO BEDTIME PRN PRN Reason: Insomnia Allergies Allergies Allergy/AdvReac Type Severity Reaction Status Date / Time Penicillins Allergy Unknown Verified 11/23/22 00:24 Assessment & Plan Assessment & Plan (1) PTSD (post-traumatic stress disorder): Status: Acute Code(s): F43.10 - Post-traumatic stress disorder, unspecified (2) Alcohol use disorder, severe, dependence: Status: Acute Code(s): F10.20 - Alcohol dependence, uncomplicated (3) Cocaine use disorder, mild, abuse: Status: Acute Code(s): F14.10 - Cocaine abuse, uncomplicated (4) Drug overdose: Status: Acute Code(s): T50.901A - Poisoning by unspecified drugs, medicaments and biological substances, accidental (unintentional), initial encounter Plan 57 yo female, second admission to since Nov 2022 s/p relapse and overdose with SI. Plan: Continue current regime Addiction consult for recovery coaching Naltrexone 25 mg daily Arrange couples/family meeting Collateral contact as needed 12/17/22-continue treatment-family meeting next week which she ageees to. Patient educated on: substance abuse and therapeutic strategies Informed Consent: understands and further education needed Reason for continued inpatient stay Substantial Risk for: rapid decompensation Time Spent With Patient Time: Total time managing care of this patient today ____ minutes.
[2022-12-17 14:13] VITALS: BP 120/82
[2022-12-17 19:25] VITALS: BP 140/85; PULSE 60; O2SAT 98
[2022-12-18 09:46] VITALS: BP 110/78; PULSE 55; RESP 18; TEMP 36.9; O2SAT 96
--- NOTE | 2022-12-18 13:26 | HO.PSYCHPN ---
Subjective Subjective Date of Service: 12/18/22 Reason For Visit: depression Subjective Notes: Conditional Voluntary Healthcare Proxy: No Guardianship: No Medical Problems Affecting Mental Status: No Interim History: Pt seen, discussed with team. Plan of care reviewed. Detox completed, CIWA discontinued Pt giving thought to topics for family meeting and what is contributing to SI/Relapses. Medication Compliance: Yes Side effects from medications: No Attending Groups: Yes Review of Systems Acute medical concerns: No Medical Review of Systems: unchanged Mental Status Exam Mental Status Exam Patient Appearance: Appropriate Patient Orientation: Person, Place, Time and Situation Level of Consciousness: Alert Patient Behavior: Talkative and Good Eye Contact Mood Description: Depressed Affect Description: Anxious and Apprehensive Patient Cognition Impaired: No Ability to Follow Directions: Fair Speech Pattern: Spontaneous Speech Memory Description: Intact Hallucinations: None Delusions: Not Present Thought Process: Intact Thought Content: positive for Suicidal Ideation Judgement: Poor Diagnostics Vital Signs (24Hr): Vital Signs - 24 hr 12/17/22 14:13 12/17/22 19:25 12/18/22 09:46 Temperature 98.4 F Pulse Rate 60 55 Respiratory Rate 18 Blood Pressure 120/82 140/85 H 110/78 Pulse Oximetry 98 96 Oxygen Delivery Method Room Air Room Air BMI result Body Mass Index 31.6 Labs 12/14/22 20:35 12/16/22 07:22 Medications Medications Current Medications Acetaminophen (Acetaminophen 325 Mg Tablet) 650 mg PO Q6H PRN PRN Reason: Headache/Pain Mild Scale (1-3) Last Admin: 12/17/22 14:19 Dose: 650 mg Al Hydroxide/Mg Hydroxide (Magnesium Hydrox/Alum Hydrox 30 Ml Oral.Susp) 30 ml PO Q6H PRN PRN Reason: Heartburn/Nausea Amlodipine Besylate (Amlodipine Besylate 5 Mg Tablet) 5 mg PO BEDTIME [facility]; Protocol Last Admin: 12/17/22 19:35 Dose: 5 mg Aspirin (Aspirin 81 Mg Tab.Chew) 81 mg PO DAILY [facility] Last Admin: 12/18/22 08:25 Dose: 81 mg Carvedilol (Carvedilol 6.25 Mg Tablet) 3.125 mg PO BID [facility]; Protocol Last Admin: 12/18/22 08:27 Dose: 3.125 mg Fluoxetine HCl (Fluoxetine Hcl 20 Mg Capsule) 20 mg PO DAILY [facility] Last Admin: 12/18/22 08:26 Dose: 20 mg Folic Acid (Folic Acid 1 Mg Tablet) 1 mg PO DAILY [facility] Last Admin: 12/18/22 08:26 Dose: 1 mg Hydroxyzine HCl (Hydroxyzine Hcl 25 Mg Tablet) 25 mg PO Q6H PRN PRN Reason: Anxiety Lorazepam (Lorazepam 1 Mg Tablet) 1 mg PO Q2H PRN PRN Reason: CIWA 6-10 Last Admin: 12/15/22 20:44 Dose: 1 mg Lorazepam (Lorazepam 1 Mg Tablet) 2 mg PO Q2H PRN PRN Reason: CIWA 11 and above Magnesium Hydroxide (Milk Of Magnesia 30 Ml Oral.Susp) 30 ml PO DAILY PRN PRN Reason: Constipation Melatonin (Melatonin 3 Mg Tablet) 6 mg PO BEDTIME PRN PRN Reason: Insomnia Last Admin: 12/17/22 19:36 Dose: 6 mg Multivitamins/Vitamin C (Multivitamin Tablet) 1 tab PO DAILY [facility] Last Admin: 12/18/22 08:26 Dose: 1 tab Naltrexone HCl (Naltrexone Hcl 50 Mg Tablet) 25 mg PO DAILY [facility] Last Admin: 12/18/22 08:25 Dose: 25 mg Nicotine (Nicotine 21 Mg Patch.Td24) 21 mg TRANSDERMA DAILY PRN PRN Reason: smoking cessation Nicotine Polacrilex (Nicotine Polacrilex 2 Mg Gum) 4 mg BUCCAL Q2H PRN PRN Reason: Nicotine Cravings Nitroglycerin (Nitroglycerin 0.4 Mg Tab.Subl) 0.4 mg SUBLINGUAL Q5MX3 PRN PRN Reason: Chest Pain Thiamine HCl (Thiamine Hcl 100 Mg Tablet) 100 mg PO DAILY [facility] Last Admin: 12/18/22 08:26 Dose: 100 mg Trazodone HCl (Trazodone Hcl 50 Mg Tablet) 50 mg PO BEDTIME PRN PRN Reason: Insomnia Allergies Allergies Allergy/AdvReac Type Severity Reaction Status Date / Time Penicillins Allergy Unknown Verified 11/23/22 00:24 Assessment & Plan Assessment & Plan (1) PTSD (post-traumatic stress disorder): Status: Acute Code(s): F43.10 - Post-traumatic stress disorder, unspecified (2) Alcohol use disorder, severe, dependence: Status: Acute Code(s): F10.20 - Alcohol dependence, uncomplicated (3) Cocaine use disorder, mild, abuse: Status: Acute Code(s): F14.10 - Cocaine abuse, uncomplicated (4) Drug overdose: Status: Acute Code(s): T50.901A - Poisoning by unspecified drugs, medicaments and biological substances, accidental (unintentional), initial encounter Plan 57 yo female, second admission to since Nov 2022 s/p relapse and overdose with SI. Plan: Continue current regime Addiction consult for recovery coaching Naltrexone 25 mg daily Arrange couples/family meeting Collateral contact as needed 12/18/22 Continue current regime and plan of care. Patient educated on: therapeutic strategies Informed Consent: understands and further education needed Reason for continued inpatient stay Substantial Risk for: rapid decompensation Time Spent With Patient Time: Total time managing care of this patient today ____ minutes.
[2022-12-18 16:30] VITALS: BP 192/94; PULSE 47; TEMP 36.1; O2SAT 99
[2022-12-18 20:25] VITALS: BP 135/82; PULSE 60
[2022-12-19 08:13] VITALS: BP 112/73; PULSE 74; RESP 16; TEMP 36.1; O2SAT 98
--- NOTE | 2022-12-19 16:42 | HO.PSYCHPN ---
Subjective Subjective Date of Service: 12/19/22 Reason For Visit: depression Subjective Notes: 3 Day Interim History: Three day notice expires 12/21/22. Reports, I can't control my liquor . I am committed to my recovery and will follow up with control and recovery combat rescue Appt 12/22/22 with [facility] out pt therapy which she would like to attend. Processing precipitants to admission, alcohol use and suicidality Family meeting 12/20. Son may be able to join via phone/zoom if he is not working. Medication Compliance: Yes Side effects from medications: No Attending Groups: Yes Review of Systems Acute medical concerns: No Mental Status Exam Mental Status Exam Patient Appearance: Appropriate Patient Orientation: Person, Place, Time and Situation Level of Consciousness: Alert Patient Behavior: Talkative and Good Eye Contact Mood Description: Depressed Affect Description: Anxious and Apprehensive Patient Cognition Impaired: No Ability to Follow Directions: Fair Speech Pattern: Spontaneous Speech Memory Description: Intact Hallucinations: None Delusions: Not Present Thought Process: Intact Thought Content: positive for Suicidal Ideation Judgement: Poor Diagnostics Vital Signs (24Hr): Vital Signs - 24 hr 12/18/22 20:25 12/19/22 08:13 Temperature 97.0 F Pulse Rate 60 74 Respiratory Rate 16 Blood Pressure 135/82 112/73 Pulse Oximetry 98 Oxygen Delivery Method Room Air BMI result Body Mass Index 31.6 Labs 12/14/22 20:35 12/16/22 07:22 Medications Medications Current Medications Acetaminophen (Acetaminophen 325 Mg Tablet) 650 mg PO Q6H PRN PRN Reason: Headache/Pain Mild Scale (1-3) Last Admin: 12/17/22 14:19 Dose: 650 mg Al Hydroxide/Mg Hydroxide (Magnesium Hydrox/Alum Hydrox 30 Ml Oral.Susp) 30 ml PO Q6H PRN PRN Reason: Heartburn/Nausea Last Admin: 12/18/22 19:12 Dose: 30 ml Amlodipine Besylate (Amlodipine Besylate 5 Mg Tablet) 5 mg PO BEDTIME [facility]; Protocol Last Admin: 12/18/22 20:31 Dose: 5 mg Aspirin (Aspirin 81 Mg Tab.Chew) 81 mg PO DAILY [facility] Last Admin: 12/19/22 08:20 Dose: 81 mg Carvedilol (Carvedilol 6.25 Mg Tablet) 3.125 mg PO BID [facility]; Protocol Last Admin: 12/19/22 08:21 Dose: 3.125 mg Fluoxetine HCl (Fluoxetine Hcl 20 Mg Capsule) 20 mg PO DAILY [facility] Last Admin: 12/19/22 08:21 Dose: 20 mg Folic Acid (Folic Acid 1 Mg Tablet) 1 mg PO DAILY [facility] Last Admin: 12/19/22 08:21 Dose: 1 mg Hydroxyzine HCl (Hydroxyzine Hcl 25 Mg Tablet) 25 mg PO Q6H PRN PRN Reason: Anxiety Lorazepam (Lorazepam 1 Mg Tablet) 1 mg PO Q2H PRN PRN Reason: CIWA 6-10 Last Admin: 12/15/22 20:44 Dose: 1 mg Lorazepam (Lorazepam 1 Mg Tablet) 2 mg PO Q2H PRN PRN Reason: CIWA 11 and above Magnesium Hydroxide (Milk Of Magnesia 30 Ml Oral.Susp) 30 ml PO DAILY PRN PRN Reason: Constipation Melatonin (Melatonin 3 Mg Tablet) 6 mg PO BEDTIME PRN PRN Reason: Insomnia Last Admin: 12/17/22 19:36 Dose: 6 mg Multivitamins/Vitamin C (Multivitamin Tablet) 1 tab PO DAILY [facility] Last Admin: 12/19/22 08:20 Dose: 1 tab Naltrexone HCl (Naltrexone Hcl 50 Mg Tablet) 25 mg PO DAILY [facility] Last Admin: 12/19/22 08:21 Dose: 25 mg Nicotine (Nicotine 21 Mg Patch.Td24) 21 mg TRANSDERMA DAILY PRN PRN Reason: smoking cessation Nicotine Polacrilex (Nicotine Polacrilex 2 Mg Gum) 4 mg BUCCAL Q2H PRN PRN Reason: Nicotine Cravings Nitroglycerin (Nitroglycerin 0.4 Mg Tab.Subl) 0.4 mg SUBLINGUAL Q5MX3 PRN PRN Reason: Chest Pain Thiamine HCl (Thiamine Hcl 100 Mg Tablet) 100 mg PO DAILY [facility] Last Admin: 12/19/22 08:20 Dose: 100 mg Trazodone HCl (Trazodone Hcl 50 Mg Tablet) 50 mg PO BEDTIME PRN PRN Reason: Insomnia Last Admin: 12/18/22 20:31 Dose: 50 mg Allergies Allergies Allergy/AdvReac Type Severity Reaction Status Date / Time Penicillins Allergy Unknown Verified 11/23/22 00:24 Assessment & Plan Assessment & Plan (1) PTSD (post-traumatic stress disorder): Status: Acute Code(s): F43.10 - Post-traumatic stress disorder, unspecified (2) Alcohol use disorder, severe, dependence: Status: Acute Code(s): F10.20 - Alcohol dependence, uncomplicated (3) Cocaine use disorder, mild, abuse: Status: Acute Code(s): F14.10 - Cocaine abuse, uncomplicated (4) Drug overdose: Status: Acute Code(s): T50.901A - Poisoning by unspecified drugs, medicaments and biological substances, accidental (unintentional), initial encounter Plan 57 yo female, second admission to since Nov 2022 s/p relapse and overdose with SI. Plan: Continue current regime Addiction consult for recovery coaching Naltrexone 25 mg daily Arrange couples/family meeting Collateral contact as needed 12/18/22 Continue current regime and plan of care. 12/19/22 Continue current regime and plan. Family meeting 12/20. Patient educated on: therapeutic strategies Informed Consent: understands and further education needed Reason for continued inpatient stay Substantial Risk for: rapid decompensation Time Spent With Patient Time: Total time managing care of this patient today ____ minutes.
[2022-12-19 18:00] VITALS: BP 161/78; PULSE 51; TEMP 35.7; O2SAT 98
[2022-12-19 20:12] VITALS: BP 151/75; PULSE 50; TEMP 36.6
[2022-12-20 06:00] VITALS: BP 124/80; PULSE 52; RESP 18; TEMP 35.9; O2SAT 98
--- NOTE | 2022-12-20 15:10 | P.PNPSI_ITS ---
Subjective Subjective Date of Service: 12/20/22 Reason For Visit: depression Subjective Notes: Conditional Voluntary Healthcare Proxy: No Guardianship: No Medical Problems Affecting Mental Status: No Interim History: Pt reports she is prepared for discharge Three day notice expires 12/21/22. Family is prepared for pt to discharge. Review of treatment plan. Pt reports no current questions or concerns. Medication Compliance: Yes Side effects from medications: No Review of Systems Acute medical concerns: No Review of Systems Review of Systems Yes all other systems are reviewed and are negative Mental Status Exam Mental Status Exam Patient Appearance: Appropriate Patient Orientation: Person, Place, Time and Situation Level of Consciousness: Alert Patient Behavior: Talkative and Good Eye Contact Mood Description: Apprehensive Affect Description: Anxious and Apprehensive Patient Cognition Impaired: No Ability to Follow Directions: Fair Speech Pattern: Spontaneous Speech Memory Description: Intact Hallucinations: None Delusions: Not Present Thought Process: Intact Thought Content: positive for Suicidal Ideation (denies) Judgement: Good Diagnostics Vital Signs (24Hr): Vital Signs - 24 hr 12/19/22 18:00 12/19/22 20:12 12/20/22 06:00 Temperature 96.3 F L 97.9 F 96.6 F L Pulse Rate 51 50 52 Respiratory Rate 18 Blood Pressure 161/78 H 151/75 H 124/80 Pulse Oximetry 98 98 Oxygen Delivery Method Room Air Room Air BMI result Body Mass Index 31.6 Labs 12/14/22 20:35 12/16/22 07:22 Medications Medications Current Medications Acetaminophen (Acetaminophen 325 Mg Tablet) 650 mg PO Q6H PRN PRN Reason: Headache/Pain Mild Scale (1-3) Last Admin: 12/17/22 14:19 Dose: 650 mg Al Hydroxide/Mg Hydroxide (Magnesium Hydrox/Alum Hydrox 30 Ml Oral.Susp) 30 ml PO Q6H PRN PRN Reason: Heartburn/Nausea Last Admin: 12/18/22 19:12 Dose: 30 ml Amlodipine Besylate (Amlodipine Besylate 5 Mg Tablet) 5 mg PO BEDTIME [facility]; Protocol Last Admin: 12/19/22 20:18 Dose: 5 mg Aspirin (Aspirin 81 Mg Tab.Chew) 81 mg PO DAILY [facility] Last Admin: 12/20/22 08:52 Dose: 81 mg Carvedilol (Carvedilol 6.25 Mg Tablet) 3.125 mg PO BID [facility]; Protocol Last Admin: 12/20/22 09:05 Dose: Not Given Fluoxetine HCl (Fluoxetine Hcl 20 Mg Capsule) 20 mg PO DAILY [facility] Last Admin: 12/20/22 08:53 Dose: 20 mg Folic Acid (Folic Acid 1 Mg Tablet) 1 mg PO DAILY [facility] Last Admin: 12/20/22 08:53 Dose: 1 mg Hydroxyzine HCl (Hydroxyzine Hcl 25 Mg Tablet) 25 mg PO Q6H PRN PRN Reason: Anxiety Magnesium Hydroxide (Milk Of Magnesia 30 Ml Oral.Susp) 30 ml PO DAILY PRN PRN Reason: Constipation Melatonin (Melatonin 3 Mg Tablet) 6 mg PO BEDTIME PRN PRN Reason: Insomnia Last Admin: 12/17/22 19:36 Dose: 6 mg Multivitamins/Vitamin C (Multivitamin Tablet) 1 tab PO DAILY [facility] Last Admin: 12/20/22 08:53 Dose: 1 tab Naltrexone HCl (Naltrexone Hcl 50 Mg Tablet) 25 mg PO DAILY [facility] Last Admin: 12/20/22 08:53 Dose: 25 mg Nicotine (Nicotine 21 Mg Patch.Td24) 21 mg TRANSDERMA DAILY PRN PRN Reason: smoking cessation Nicotine Polacrilex (Nicotine Polacrilex 2 Mg Gum) 4 mg BUCCAL Q2H PRN PRN Reason: Nicotine Cravings Nitroglycerin (Nitroglycerin 0.4 Mg Tab.Subl) 0.4 mg SUBLINGUAL Q5MX3 PRN PRN Reason: Chest Pain Thiamine HCl (Thiamine Hcl 100 Mg Tablet) 100 mg PO DAILY [facility] Last Admin: 12/20/22 08:52 Dose: 100 mg Trazodone HCl (Trazodone Hcl 50 Mg Tablet) 50 mg PO BEDTIME PRN PRN Reason: Insomnia Last Admin: 12/19/22 20:18 Dose: 50 mg Allergies Allergies Allergy/AdvReac Type Severity Reaction Status Date / Time Penicillins Allergy Unknown Verified 11/23/22 00:24 Assessment & Plan Assessment & Plan (1) PTSD (post-traumatic stress disorder): Status: Acute Code(s): F43.10 - Post-traumatic stress disorder, unspecified (2) Alcohol use disorder, severe, dependence: Status: Acute Code(s): F10.20 - Alcohol dependence, uncomplicated (3) Cocaine use disorder, mild, abuse: Status: Acute Code(s): F14.10 - Cocaine abuse, uncomplicated (4) Drug overdose: Status: Resolved Code(s): T50.901A - Poisoning by unspecified drugs, medicaments and biological substances, accidental (unintentional), initial encounter Plan 57 yo female, second admission to since Nov 2022 s/p relapse and overdose with SI. Plan: Continue current regime Addiction consult for recovery coaching Naltrexone 25 mg daily Arrange couples/family meeting Collateral contact as needed 12/18/22 Continue current regime and plan of care. 12/20/22 Discharge 12/21/22-three day notice of intent. Patient educated on: medication risk/benefits and therapeutic strategies Informed Consent: understands Reason for continued inpatient stay Substantial Risk for: rapid decompensation Time Spent With Patient Time: Total time managing care of this patient today ____ minutes.
[2022-12-20] MEDS: Magnesium Hydrox/Alum Hydrox 30 ML ORAL.SUSP PO (16:32)
[2022-12-20 18:00] VITALS: BP 135/82; PULSE 54; TEMP 35.7; O2SAT 97
[2022-12-20 20:04] VITALS: BP 138/81; PULSE 50
[2022-12-20] MEDS: traZODone HCL 50 MG TABLET PO (20:05)
[2022-12-20] MEDS: carvediloL 6.25 MG TABLET 3.125 MG PO (20:05)
[2022-12-20] MEDS: amLODIPine Besylate 5 MG TABLET PO (20:06)
[2022-12-21 06:00] VITALS: BP 120/69; PULSE 55; RESP 18; TEMP 36.3; O2SAT 98
[2022-12-21 07:00] VITALS: BMI 33.2
[2022-12-21] MEDS: FLUoxetine HCl 20 MG CAPSULE PO (08:17)
[2022-12-21] MEDS: Thiamine HCL 100 MG TABLET PO (08:17)
[2022-12-21] MEDS: Aspirin 81 MG TAB.CHEW PO (08:17)
[2022-12-21] MEDS: Naltrexone HCl 50 MG TABLET 25 MG PO (08:17)
[2022-12-21] MEDS: Multivitamin TABLET 1 TAB PO (08:17)
[2022-12-21] MEDS: Folic Acid 1 MG TABLET PO (08:17)
[2022-12-21] MEDS: carvediloL 6.25 MG TABLET 3.125 MG PO (08:21)
[2022-12-21] MEDS: Magnesium Hydrox/Alum Hydrox 30 ML ORAL.SUSP PO (09:48)
--- NOTE | 2022-12-21 12:53 | PM.PSYDC ---
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 Has provider been notified: No Attending physician on discharge: Joseluis Milligan Discharging clinician: Agata Hobbs DS: Diagnosis Discharge Diagnosis (1) PTSD (post-traumatic stress disorder): Status: Acute (2) Alcohol use disorder, severe, dependence: Status: Acute (3) Cocaine use disorder, mild, abuse: Status: Acute (4) Drug overdose: Status: Resolved DS: Medications Discharge Medications Home Medications: Previous Rx's Medication Instructions Recorded nitroglycerin 0.4 mg sublingual 0.4 mg sublingual Q5MX3 PRN Chest 11/30/22 tablet (Nitrostat) Pain #30 tabs amlodipine 5 mg tablet 5 mg PO BEDTIME #30 tabs 12/21/22 aspirin 81 mg chewable tablet 81 mg PO DAILY #30 tabs 12/21/22 carvedilol 6.25 mg tablet 3.125 mg PO BID #15 tabs 12/21/22 fluoxetine 20 mg capsule 20 mg PO DAILY #30 caps 12/21/22 folic acid 1 mg tablet 1 mg PO DAILY #30 tabs 12/21/22 melatonin 3 mg tablet 6 mg (2 x 3 mg) PO BEDTIME PRN 12/21/22 Insomnia #60 tabs multivitamin (Daily-Bhavin tablet) 1 tab PO DAILY #30 tabs 12/21/22 naltrexone 50 mg tablet 25 mg (1/2 x 50 mg) PO DAILY #15 12/21/22 tabs thiamine mononitrate (vit B1) 100 100 mg PO DAILY #30 tabs 12/21/22 mg tablet trazodone 50 mg tablet 50 mg PO BEDTIME PRN Insomnia #30 12/21/22 tabs Mental Status Exam Mental Status Exam Patient Appearance: Appropriate Patient Orientation: Person, Place, Time and Situation Level of Consciousness: Alert Patient Behavior: Talkative and Good Eye Contact Mood Description: Apprehensive Affect Description: Anxious and Apprehensive Patient Cognition Impaired: No Ability to Follow Directions: Fair Speech Pattern: Spontaneous Speech Memory Description: Intact Hallucinations: None Delusions: Not Present Thought Process: Intact Thought Content: positive for Suicidal Ideation (denies) Judgement: Good Data Data Completed and Pending Completed studies during hospitalization [Text1]: 12/14/22 12/14/22 12/15/22 20:35 20:44 06:29 WBC 5.5 RBC 4.30 Hgb 13.8 Hct 39.0 MCV 90.7 MCH 32.1 MCHC 35.4 H RDW 12.0 Plt Count 284 MPV 9.6 Immature Gran % (Auto) 0.4 Neut % (Auto) 41.6 L Lymph % (Auto) 44.6 H [place] % (Auto) 10.6 Eos % (Auto) 2.4 Baso % (Auto) 0.4 Lymph # (Auto) 2.4 [place] # (Auto) 0.6 Eos # (Auto) 0.1 Baso # (Auto) 0.0 Abs Immat Gran (auto) 0.02 Absolute Neuts (auto) 2.3 Absolute Nucleated RBC 0.000 Nucleated RBC % (auto) 0.0 Sodium 143 Potassium 3.2 L D Chloride 111 H Carbon Dioxide 19 L Anion Gap 16 BUN 16 Creatinine 0.69 Estim Creat Clear Calc TNP Estimated GFR > 60 Random Glucose 97 Fasting Glucose Calcium 8.8 D Total Bilirubin 0.3 Direct Bilirubin 0.1 AST 54 H ALT 66 H Alkaline Phosphatase 98 Total Protein 7.7 Albumin 3.6 Urine Color Yellow Urine Appearance Clear Urine pH 6.0 Ur Specific [place] <= 1.005 Urine Protein Negative Urine Glucose (UA) Negative Urine Ketones Negative Urine Blood Negative Urine Nitrite Negative Ur Leukocyte Esterase Negative Urine RBC 0-2 Urine WBC 0-5 Ur Squamous Epith Cells 0-2 Urine Bacteria None Seen Hyaline Casts 0-2 Salicylates < 5.0 L Urine Opiates Screen Not Detected Urine Fentanyl Screen Not Detected Acetaminophen < 17 Ur Barbiturates Screen Not Detected Ur Phencyclidine Scrn Not Detected Ur Amphetamines Screen Not Detected U Benzodiazepines Scrn Not Detected Urine Cocaine Screen Not Detected U Marijuana (THC) Screen Not Detected Ethyl Alcohol 226 COVID-19 ([facility]) Negative COVID-19 Clin Com See Note 12/16/22 07:22 WBC RBC Hgb Hct MCV MCH MCHC RDW Plt Count MPV Immature Gran % (Auto) Neut % (Auto) Lymph % (Auto) [place] % (Auto) Eos % (Auto) Baso % (Auto) Lymph # (Auto) [place] # (Auto) Eos # (Auto) Baso # (Auto) Abs Immat Gran (auto) Absolute Neuts (auto) Absolute Nucleated RBC Nucleated RBC % (auto) Sodium 140 Potassium 3.8 Chloride 106 Carbon Dioxide 22 Anion Gap 16 BUN 10 Creatinine 0.74 Estim Creat Clear Calc 90.9 Estimated GFR > 60 Random Glucose Fasting Glucose 98 Calcium 10.1 D Total Bilirubin 1.0 Direct Bilirubin AST 48 H ALT 62 H Alkaline Phosphatase 106 Total Protein 8.7 H Albumin 4.1 Urine Color Urine Appearance Urine pH Ur Specific [place] Urine Protein Urine Glucose (UA) Urine Ketones Urine Blood Urine Nitrite Ur Leukocyte Esterase Urine RBC Urine WBC Ur Squamous Epith Cells Urine Bacteria Hyaline Casts Salicylates Urine Opiates Screen Urine Fentanyl Screen Acetaminophen Ur Barbiturates Screen Ur Phencyclidine Scrn Ur Amphetamines Screen U Benzodiazepines Scrn Urine Cocaine Screen U Marijuana (THC) Screen Ethyl Alcohol COVID-19 ([facility]) COVID-19 Clin Com DS: Summary Hospital Course Hospital Course: Admission to adult psychiatry after recent admission, 3 weeks of sobriety, relapse with SI. Stressors pt is managing include having her son away from home in the , loss of her brother to overdose, loss of her job in 2018. She identifies all of these as more difficult having to manage the feelings with sobriety. Also identifies a difficult divorce and current discord in her marriage, although her is supportive per her report and per his report in couples meeting. He, however, is quiet, reserved and tells her he does not know how to be a support to her, but worries about her constantly. Medications and out patient plan were reviewed with pt. She did sign a three day notice of intent and wants to meet with her head athletic trainer/strength coach, scheduled for 12/22/22. She had a positive couples meeting prior to discharge and reports she feels more positive about her supports and out patient plans. Time spent discussing smoking cessation with patient: 3 to 10 minutes Status at Discharge Functional status at discharge: independent ambulation Overall status at discharge: patient is progressing back to baseline Time Spent with Patient Time attestation: Total time managing care of this patient today ____ minutes. Time spent: Greater than 30 minutes Discharge Plan Discharge Anticipated Discharge Date/Time: 12/21/22 12:12 Patient Disposition: Home, Self-Care Discharge Diagnosis: PTSD Major Deoression Alcohol Use Disorder Cocaine Use Disorder Referrals: [facility] Therapy w Jihan Nazario [Other] - 12/22/22 10:00 am [facility] Psyche appt w Shraddha Cherry [Other] - 01/03/23 11:00 am (Telehealth) [facility] Med Mangmnt w Shraddha Cherry [Other] - 01/30/23 12:00 pm (Telehealth) [facility] [Other] - 1 Week (Follow up upon discharge.) [facility] [Other] - 1 Week (Walk-In Clinic) Physician,None [Primary Care Provider] - 1 Week Discharge Medications: New carvedilol 6.25 mg Tablet 3.125 mg PO BID Qty: 15 0RF Protocol: Hold for SBP/HR < HOLD for SBP < : 90 HOLD for HR < : 60 naltrexone 50 mg Tablet 25 mg PO DAILY Qty: 15 0RF melatonin 3 mg Tablet 6 mg PO BEDTIME PRN (Reason: Insomnia) Qty: 60 0RF Continued multivitamin [Daily-Bhavin] Tablet 1 tab PO DAILY Qty: 30 0RF trazodone 50 mg Tablet 50 mg PO BEDTIME PRN (Reason: Insomnia) Qty: 30 0RF amlodipine 5 mg Tablet 5 mg PO BEDTIME Qty: 30 0RF Protocol: Hold for SBP< HOLD for SBP < : 90 aspirin 81 mg Tablet,Chewable 81 mg PO DAILY Qty: 30 0RF folic acid 1 mg Tablet 1 mg PO DAILY Qty: 30 0RF fluoxetine 20 mg Capsule 20 mg PO DAILY Qty: 30 0RF thiamine mononitrate (vit B1) 100 mg Tablet 100 mg PO DAILY Qty: 30 0RF nitroglycerin [Nitrostat] 0.4 mg Tablet, Sublingual 0.4 mg sublingual Q5MX3 PRN (Reason: Chest Pain) Qty: 30 0RF Discontinued carvedilol 6.25 mg tablet 3.25 mg PO BID Protocol: Hold for SBP/HR < HOLD for SBP < : 90 HOLD for HR < : 60 Discharge Orders: Discharge Order (Routine); Ordered 12/21/22 Ordered By: Agata Hobbs Diet: Advance to usual diet Activity on Discharge: As tolerated Stand Alone Forms: Patient Portal Discharge page, Community Support Care Plan Goals: Mood and Behavioral Stabilization Work on Sobriety Health Concerns: Mood and Behavioral Stabilization Sobriety Plan of Treatment: Attend scheduled appointments Take medications as directed Assessment: Three day notice of intent. Discharge Date/Time: 12/21/22 10:51
== END 2022-12-21 10:51 | disposition home or self-care (01) | DRG 754 ==
LOC: HO.ED 12-15 06:20 → HO.PM5 12-15 12:03
PROVIDERS: Admitting Provider Psychiatry & Neurology Psychiatry; Emergency Provider Emergency Medicine Emergency Medical Services; Visit Provider Clinical Nurse Specialist Psychiatric/Mental Health, Adult
DX: F32.9 Major depressive disorder, single episode, unspecified (principal); F10.20 Alcohol dependence, uncomplicated; F43.10 Post-traumatic stress disorder, unspecified; T50.902A Poisoning by unspecified drugs, medicaments and biological substances, intentional self-harm, initial encounter; F14.10 Cocaine abuse, uncomplicated; Z20.822 Contact with and (suspected) exposure to COVID-19; Y90.7 Blood alcohol level of 200-239 mg/100 ml; Z79.82 Long term (current) use of aspirin; Z87.891 Personal history of nicotine dependence; Z79.899 Other long term (current) drug therapy
CPT/HCPCS: 36415; 80048; 80053; 80076; 80143; 80179; 80307; 81001; 85025; 87635; 93005; 99285; J2405; S9485

== ENCOUNTER → 2022-12-15 11:41 | Outpatient (BNV) | payer OTHER, SELFPAY | PROVIDERS: Admitting Provider Psychiatry & Neurology Psychiatry; Emergency Provider Emergency Medicine Emergency Medical Services; Visit Provider Clinical Nurse Specialist Psychiatric/Mental Health, Adult | DX: F14.10 Cocaine abuse, uncomplicated (principal); F10.20 Alcohol dependence, uncomplicated; F43.11 Post-traumatic stress disorder, acute; T50.901A Poisoning by unspecified drugs, medicaments and biological substances, accidental (unintentional), initial encounter | CPT/HCPCS: 99231; 99232 ==